=== PATIENT | male | born 1965 | race African-American/Black ===

== ENCOUNTER 2019-06-05 14:54 | Inpatient (IN) | payer OTHER ==
[2019-06-05 17:38] VITALS: BMI 22.8
--- NOTE | 2019-06-05 19:02 | HP ---
CIWA Score Nausea/Vomitin-No Nausea/No Vomiting Muscle Tremors: 1-None Visible, but [place] Anxiety: 4-Mod. Anxious/Guarded Agitation: 4-Moderately Restless Paroxysmal Sweats: No Perspiration Orientation: 0-Oriented Tacttile Disturbances: 2-Mild Itch/Numbness/Burn Auditory Disturbances: 0-None Visual Disturbances: 1-Very Mild Sensitivity Headache: 4-Moderately Severe CIWA-Ar Total Score: 16 - Admission Criteria OASAS Guidelines: Admission for Medically Managed Detox: Requires at least one of the followin. CIWA greater than 12 2. Seizures within the past 24 hours 3. Delirium tremens within the past 24 hours 4. Hallucinations within the past 24 hours 5. Acute intervention needed for co occurring medical disorder 6. Acute intervention needed for co occurring psychiatric disorder 7. Severe withdrawal that cannot be handled at a lower level of care (continued vomiting, continued diarrhea, abnormal vital signs) requiring intravenous medication and/or fluids 8. Admission [facility] Allergies/Adverse Reactions: Allergies Allergy/AdvReac Type Severity Reaction Status Date / Time rice Allergy Mild Verified 06/05/19 17:28 Milk Containing Products Allergy Unknown Verified 01/19/16 19:07 No Known Drug Allergies Allergy Unknown Verified 01/19/16 19:07 pasta Allergy Mild Uncoded 06/05/19 17:28 soda Allergy Mild Uncoded 06/05/19 17:28 RED MEAT Allergy Unknown Uncoded 01/19/16 19:07 History of Present Illness: pt here requesting detox from etoh use , reports relapse after 3 years , he went to a democrat and started drinking , current daily use 1 gallon /day , starts drinking in the mornings , reports tremors , chills/sweating , + blackouts , denies seizures , latest use today , current VANCE 0.080 , first age of use 11 , heavily since 2006 . Reports loss of job due to etoh use . tobacco : 1 ppd x 1 month , prior smoking cessation x 3 years . PMHX : DM 2 dx 2008 , PSHX : denies PSych : denies Meds : see list SHx : lives alone , unemployed . Exam Limitations: Clinical Condition - Ebola screening Have you traveled outside of the country in the last 21 days: No Have you had contact with anyone from an Ebola affected area: No - Review of Systems Constitutional: Loss of Appetite EENT: reports: Other (glasses) Respiratory: reports: No Symptoms reported Cardiac: reports: Chest Tightness (states went to [facility] yesterday for chest pain , per pt cleared , denies current symptoms , d/c this morning .) GI: reports: Diarrhea, Poor Appetite : reports: No Symptoms Reported Musculoskeletal: reports: No Symptoms Reported Integumentary: reports: No Symptoms Reported Neuro: reports: See HPI, Headache, Numbness, Paresthesia, Tremors Endocrine: reports: See HPI Psychiatric: reports: Orientated x3, Agitated, Anxious Patient History - Patient Medical History Hx Asthma: No Hx Chronic Obstructive Pulmonary Disease (COPD): No Hx Cardiac Disorders: No Hx Hypertension: No Hx Seizures: No Hx Diabetes: Yes (DIET CONTROLLED) Hx Gastrointestinal Disorders: No Hx Genitourinary Disorders: No Hx Sexually Transmitted Disorders: No Hx Renal Disease (ESRD): No Hx Human Immunodeficiency Virus (HIV): No Hx Hepatitis C: No Hx Depression: No Hx Suicide Attempt: No Hx Schizophrenia: No - Patient Surgical History Past Surgical History: No Hx Neurologic Surgery: No Hx Cataract Extraction: No Hx Cardiac Surgery: No Hx Lung Surgery: No Hx Breast Surgery: No Hx Breast Biopsy: No Hx Abdominal Surgery: No Hx Appendectomy: No Hx Cholecystectomy: No Hx Genitourinary Surgery: No Hx Section: No Hx Orthopedic Surgery: No - PPD History Date: 01/21/16 - Smoking Cessation Smoking history: Current every day smoker Have you smoked in the past 12 months: Yes Aproximately how many cigarettes per day: 20 Hx Chewing Tobacco Use: No Initiated information on smoking cessation: No - Substances abused Alcohol Substance route: Oral Frequency: Daily Amount used: 1 gal vodka Age of first use: 11 Date of last use: 06/05/19 Family Disease History - Family Disease History Family Disease History: Diabetes: Grandparent (ETOH DEPENDENT AND ), Father (d.), Mother (d.), CA: Father, Mother, Other: Grandparent, Father, Mother, Brother (2 brothers , A & W ), Sister (2 sisters , A & W ), Son (4 sons, A & W ) , Daughter (7 daughters , A & W ) Other Family History: 30 grand-children Admission Physical Exam S - Vital Signs Vital Signs: Vital Signs - 24 hr 08/27/19 17:32 Temperature 97.4 F L Pulse Rate 89 Respiratory 18 Rate Blood Pressure 125/72 - Physical General Appearance: Yes: Disheveled, Moderate Distress, Alcohol on Breath, Irritable, Anxious HEENTM: Yes: Hearing grossly Normal, Normocephalic, Normal Voice Respiratory: Yes: Lungs Clear, Normal Breath Sounds, No Respiratory Distress, No Accessory Muscle Use Neck: Yes: No masses,lesions,Nodules, Trachea in good position Cardiology: Yes: Regular Rhythm, Regular Rate, S1, S2, Tachycardia Abdominal: Yes: Non Tender, Soft Back: Yes: Normal Inspection Musculoskeletal: Yes: full range of Motion, Gait Steady Extremities: Yes: Normal Range of Motion, Non-Tender Neurological: Yes: Fully Oriented, Alert, Motor Strength 5/5 Integumentary: Yes: Warm - Diagnostic (1) Alcohol dependence with uncomplicated withdrawal Current Visit: Yes Status: Acute Breathalyzer - Breathalyzer Breathalyzer: 0.080 Urine Drug Screen - Test Device Lot number: [id number] Expiration date: 03/09/21 - Control Is test valid?: Yes - Results Drug screen NEGATIVE: Yes Inpatient Rehab Admission - Rehab Decision to Admit Inpatient rehab admission?: No
[2019-06-05] MEDS ORDERED: ACETAMINOPHEN 325 MG TABLET (FP) PO PRN ×2 (19:16)
[2019-06-05] MEDS ORDERED: IBUPROFEN 400 MG TABLET (FP) PO PRN (19:16)
[2019-06-05] MEDS ORDERED: MAG HYDROX/AL HYDROX/SIMETH 30 ML UNIT-DOSE CUP PO PRN (19:16)
[2019-06-05] MEDS ORDERED: MENTHOL/PHENOL 1 EACH UD MM PRN (19:16)
[2019-06-05] MEDS ORDERED: hydrOXYzine PAMOATE 25 MG CAPSULE (FP) PO PRN (19:16)
[2019-06-05] MEDS ORDERED: MAGNESIUM HYDROX 2400MG/30ML ORAL SUSPENSION 30 ML CUP PO PRN (19:16)
[2019-06-05] MEDS ORDERED: MAGNESIUM CITRATE 300 ML BOTTLE PO PRN (19:16)
[2019-06-05] MEDS ORDERED: BISMUTH SUBSALICYLATE 524 MG/30 ML UD PO PRN (19:16)
[2019-06-05] MEDS ORDERED: NICOTINE POLACRILEX 2 MG GUM BUC PRN (19:16)
[2019-06-05] MEDS ORDERED: chlordiazePOXIDE HCL 25 MG CAPSULE PO ONE (19:18)
[2019-06-05] MEDS ORDERED: chlordiazePOXIDE HCL 25 MG CAPSULE PO PRN (19:18)
[2019-06-05] MEDS: chlordiazePOXIDE HCL 25 MG CAPSULE PO SCH (22:47)
[2019-06-05] MEDS: METHOCARBAMOL 500 MG TABLET PO PRN (22:49)
[2019-06-05] MEDS: THIAMINE HCL 100 MG TABLET (FP) PO SCH (22:49)
[2019-06-05] MEDS: MELATONIN 5 MG TABLETS PO PRN (22:49)
[2019-06-05] MEDS ORDERED: QUEtiapine FUMARATE 25 MG TABLET (FP) PO ONE (23:00)
[2019-06-06] MEDS: chlordiazePOXIDE HCL 25 MG CAPSULE PO SCH ×4 (06:00→22:06)
[2019-06-06 10:13] LABS: HEMATOCRIT 38.6 % (35.4-49); HEMOGLOBIN 12.6 GM/dL (11.7-16.9); MCH 30.4 pg (25.7-33.7); MCHC 32.5 g/dl (32.0-35.9); MEAN CELL VOLUME 93.4 fl (80-96); MEAN PLT VOLUME 8.4 fl (7.5-11.1); PLATELET COUNT 182 K/MM3 (134-434); RBC 4.13 M/mm3 (4.00-5.60); RDW 18.3 % (11.9-15.9)
[2019-06-06 10:24] LABS: BILIRUBIN,TOTAL 0.4 mg/dL (0.2-1); CALCIUM 8.5 mg/dL (8.5-10.1); CREATININE 0.8 mg/dL (0.55-1.3); POTASSIUM 4.2 mmol/L (3.5-5.1)
[2019-06-06] MEDS: PRENATAL VITAMINS W/ FOLIC ACID TABLET (FP) PO SCH (10:40)
[2019-06-06] MEDS: METHOCARBAMOL 500 MG TABLET PO PRN ×2 (10:42→22:09)
--- NOTE | 2019-06-06 12:13 | CONSULT ---
[facility] Psychiatric Consult - Data Date of interview: 06/06/19 Admission source: [facility] Identifying data: Readmission to [facility] for this 53 y/o AA male self- referred for detoxification (alcohol). Examined at [address] [place] [address]. Patient is , a father of eleven, domiciled, and currently employed as a management trainee program stores. Substance Abuse History: Discussed in this session. Mr Cardoso confirms an extensive history of alcohol abuse. Details in current [facility] report as follows : Smoking history: Current every day smoker. Have you smoked in the past 12 months: Yes. Aproximately how many cigarettes per day: 20. Hx Chewing Tobacco Use: No. Initiated information on smoking cessation: No. - Substances abused. Alcohol. Substance route: Oral. Frequency: Daily. Amount used: 1 gal vodka. Age of first use: 11. Date of last use: 06/05/19 Medical History: Remarkable for diabetes mellitus. Psychiatric History: Patient denies history of psychiatric hospitalizations, OPD care or suicide attempts. Physical/Sexual Abuse/Trauma History: No history. Additional Comment: Drug screen is negative. Mental Status Exam - Mental Status Exam Alert and Oriented to: Time, Place, Person Cognitive Function: Good Patient Appearance: Well Groomed Mood: Nervous, Withdrawn, Anxious Affect: Appropriate, Mood Congruent Patient Behavior: Fatigued, Appropriate, Cooperative Speech Pattern: Clear Voice Loudness: Normal Thought Process: Intact, Goal Oriented Thought Disorder: Not Present Hallucinations: Denies Suicidal Ideation: Denies Homicidal Ideation: Denies Insight/Judgement: Poor Sleep: Well Appetite: Good Muscle strength/Tone: Normal Gait/Station: Normal Psychiatric Findings - Problem List ([place] 1, 2,3) (1) Alcohol dependence with uncomplicated withdrawal Current Visit: Yes Status: Acute - Initial Treatment Plan Initial Treatment Plan: Psychoeducation. Sleep hygiene. Detoxification. AA meetings. Support. Observation.
--- NOTE | 2019-06-06 14:51 | PN ---
[facility] CIWA - CIWA Score Nausea/Vomitin-Mild Nausea/No Vomiting Muscle Tremors: 4-Moderate,w/Arms Extend Anxiety: 3 Agitation: 2 Paroxysmal Sweats: 2 Orientation: 0-Oriented Tacttile Disturbances: 0-None Auditory Disturbances: 0-None Visual Disturbances: 0-None Headache: 1-Very Mild CIWA-Ar Total Score: 13 S Progress Note (SOAP) Subjective: 53 years old male first admission since 2015 was admitted on 06/05/19 for alcohol withdrawal sx management doing well with libirum detox regimen limited food toleration glucerna supplement as diabetes treated with high protein high calories diet with no concentrated sugar dietary referral Objective: 06/06/19 14:57 Vital Signs Temperature 98.4 F 06/06/19 09:22 Pulse Rate 86 06/06/19 13:17 Respiratory Rate 18 06/06/19 13:17 Blood Pressure 113/77 06/06/19 13:17 O2 Sat by Pulse Oximetry (%) Laboratory Last Values WBC 6.0 K/mm3 (4.0-10.0) 06/06/19 07:00 RBC 4.13 M/mm3 (4.00-5.60) 06/06/19 07:00 Hgb 12.6 GM/dL (11.7-16.9) 06/06/19 07:00 Hct 38.6 % (35.4-49) 06/06/19 07:00 MCV 93.4 fl (80-96) 06/06/19 07:00 MCH 30.4 pg (25.7-33.7) 06/06/19 07:00 MCHC 32.5 g/dl (32.0-35.9) 06/06/19 07:00 RDW 18.3 % (11.9-15.9) H 06/06/19 07:00 Plt Count 182 K/MM3 (134-434) 06/06/19 07:00 MPV 8.4 fl (7.5-11.1) 06/06/19 07:00 Sodium 142 mmol/L (136-145) 06/06/19 07:00 Potassium 4.2 mmol/L (3.5-5.1) 06/06/19 07:00 Chloride 108 mmol/L (98-107) H 06/06/19 07:00 Carbon Dioxide 28 mmol/L (21-32) 06/06/19 07:00 Anion Gap 6 MMOL/L (8-16) L 06/06/19 07:00 BUN 16.0 mg/dL (7-18) 06/06/19 07:00 Creatinine 0.8 mg/dL (0.55-1.3) 06/06/19 07:00 Est GFR (CKD-EPI)AfAm 116.56 06/06/19 07:00 Est GFR (CKD-EPI)NonAf 100.57 06/06/19 07:00 POC Glucometer 117 UNITS (80-120) 06/06/19 06:04 Random Glucose 104 mg/dL (74-106) 06/06/19 07:00 Calcium 8.5 mg/dL (8.5-10.1) 06/06/19 07:00 Total Bilirubin 0.4 mg/dL (0.2-1) 06/06/19 07:00 AST 30 U/L (15-37) 06/06/19 07:00 ALT 28 U/L (13-61) 06/06/19 07:00 Alkaline Phosphatase 65 U/L (45-117) 06/06/19 07:00 Total Protein 6.0 g/dl (6.4-8.2) L 06/06/19 07:00 Albumin 3.0 g/dl (3.4-5.0) L 06/06/19 07:00 RPR Titer Nonreactive (NONREACTIVE) 06/06/19 07:00 lab noted Assessment: 06/06/19 14:57 alcohol withdrawal sx patient is alert oriented x 3 but continue tremor chill and sweating Plan: continue librium detox regimen
[2019-06-06] MEDS: THIAMINE HCL 100 MG TABLET (FP) PO SCH (22:07)
[2019-06-06] MEDS: MELATONIN 5 MG TABLETS PO PRN (23:17)
[2019-06-07] MEDS: chlordiazePOXIDE HCL 25 MG CAPSULE PO SCH ×4 (05:47→22:28)
--- NOTE | 2019-06-07 10:10 | PN ---
[facility] CIWA - CIWA Score Nausea/Vomitin-No Nausea/No Vomiting Muscle Tremors: 2 Anxiety: 3 Agitation: 1-Slight > Activity Paroxysmal Sweats: 2 Orientation: 0-Oriented Tacttile Disturbances: 0-None Auditory Disturbances: 0-None Visual Disturbances: 0-None Headache: 1-Very Mild CIWA-Ar Total Score: 9 S Progress Note (SOAP) Subjective: doing well with libirum detox regimen irritable chill and sweat limited conversation with staff, avoid aftercare at [facility] seen by psychiatrist no biomedical intervention Objective: 06/07/19 10:09 Vital Signs Temperature 96.1 F L 06/07/19 09:14 Pulse Rate 68 06/07/19 09:14 Respiratory Rate 18 06/07/19 09:14 Blood Pressure 92/58 L 06/07/19 09:14 O2 Sat by Pulse Oximetry (%) Laboratory Last Values WBC 6.0 K/mm3 (4.0-10.0) 06/06/19 07:00 RBC 4.13 M/mm3 (4.00-5.60) 06/06/19 07:00 Hgb 12.6 GM/dL (11.7-16.9) 06/06/19 07:00 Hct 38.6 % (35.4-49) 06/06/19 07:00 MCV 93.4 fl (80-96) 06/06/19 07:00 MCH 30.4 pg (25.7-33.7) 06/06/19 07:00 MCHC 32.5 g/dl (32.0-35.9) 06/06/19 07:00 RDW 18.3 % (11.9-15.9) H 06/06/19 07:00 Plt Count 182 K/MM3 (134-434) 06/06/19 07:00 MPV 8.4 fl (7.5-11.1) 06/06/19 07:00 Sodium 142 mmol/L (136-145) 06/06/19 07:00 Potassium 4.2 mmol/L (3.5-5.1) 06/06/19 07:00 Chloride 108 mmol/L (98-107) H 06/06/19 07:00 Carbon Dioxide 28 mmol/L (21-32) 06/06/19 07:00 Anion Gap 6 MMOL/L (8-16) L 06/06/19 07:00 BUN 16.0 mg/dL (7-18) 06/06/19 07:00 Creatinine 0.8 mg/dL (0.55-1.3) 06/06/19 07:00 Est GFR (CKD-EPI)AfAm 116.56 06/06/19 07:00 Est GFR (CKD-EPI)NonAf 100.57 06/06/19 07:00 POC Glucometer 117 UNITS (80-120) 06/06/19 06:04 Random Glucose 104 mg/dL (74-106) 06/06/19 07:00 Calcium 8.5 mg/dL (8.5-10.1) 06/06/19 07:00 Total Bilirubin 0.4 mg/dL (0.2-1) 06/06/19 07:00 AST 30 U/L (15-37) 06/06/19 07:00 ALT 28 U/L (13-61) 06/06/19 07:00 Alkaline Phosphatase 65 U/L (45-117) 06/06/19 07:00 Total Protein 6.0 g/dl (6.4-8.2) L 06/06/19 07:00 Albumin 3.0 g/dl (3.4-5.0) L 06/06/19 07:00 RPR Titer Nonreactive (NONREACTIVE) 06/06/19 07:00 lab noted Assessment: 06/07/19 10:09 alcohol withdrawal sx alert oriented x 3 speech clearly but loud and irritable augmentative emotional support and assurance given Plan: continue libirum detox regimen
[2019-06-07] MEDS: PRENATAL VITAMINS W/ FOLIC ACID TABLET (FP) PO SCH (10:50)
[2019-06-07] MEDS: THIAMINE HCL 100 MG TABLET (FP) PO SCH (22:25)
[2019-06-07] MEDS: MELATONIN 5 MG TABLETS PO PRN (22:26)
[2019-06-07] MEDS: METHOCARBAMOL 500 MG TABLET PO PRN (22:26)
[2019-06-08] MEDS ORDERED: chlordiazePOXIDE HCL 10 MG CAPSULE PO PRN
[2019-06-08] MEDS: chlordiazePOXIDE HCL 10 MG CAPSULE PO SCH ×4 (06:54→22:30)
[2019-06-08] MEDS: PRENATAL VITAMINS W/ FOLIC ACID TABLET (FP) PO SCH (11:28)
--- NOTE | 2019-06-08 14:07 | PN ---
S CIWA - CIWA Score Nausea/Vomitin-No Nausea/No Vomiting Muscle Tremors: 1-None Visible, but [place] Anxiety: 2 Agitation: 2 Paroxysmal Sweats: No Perspiration Orientation: 0-Oriented Tacttile Disturbances: 1-Very Mild Itch/Numbness Auditory Disturbances: 0-None Visual Disturbances: 0-None Headache: 2-Mild CIWA-Ar Total Score: 8 BHS Progress Note (SOAP) Subjective: alert,irritable,anxious,interrupted sleep,poor appetite Objective: 06/08/19 14:06 Vital Signs Temperature 96.7 F L 06/08/19 13:59 Pulse Rate 79 06/08/19 13:59 Respiratory Rate 18 06/08/19 13:59 Blood Pressure 115/80 06/08/19 13:59 O2 Sat by Pulse Oximetry (%) Assessment: 06/08/19 14:06 withdrawal symptom Plan: continue detox librium regimen
[2019-06-08] MEDS: METHOCARBAMOL 500 MG TABLET PO PRN (22:27)
[2019-06-08] MEDS: MELATONIN 5 MG TABLETS PO PRN (22:27)
[2019-06-08] MEDS: THIAMINE HCL 100 MG TABLET (FP) PO SCH (22:27)
[2019-06-09] MEDS ORDERED: chlordiazePOXIDE HCL 10 MG CAPSULE PO SCH (05:00)
[2019-06-09] MEDS: PRENATAL VITAMINS W/ FOLIC ACID TABLET (FP) PO SCH (10:14)
--- NOTE | 2019-06-09 15:50 | PN ---
S CIWA - CIWA Score Nausea/Vomitin-No Nausea/No Vomiting Muscle Tremors: 2 Anxiety: 4-Mod. Anxious/Guarded Agitation: 2 Paroxysmal Sweats: 1-Minimal [place] Moist Orientation: 0-Oriented Tacttile Disturbances: 0-None Auditory Disturbances: 0-None Visual Disturbances: 0-None Headache: 0-None Present CIWA-Ar Total Score: 9 BHS Progress Note (SOAP) Subjective: Pt is a 53 y/o male with here for alcohol detox alcohol. Pt c/ of chills, anxiety and slight tremors. OOb, ambulating and socializing with peers in dayroom at breakfast period. Pt reports to this commercial underwriter that he has not been taking the librium because it makes his eyes swell. He indicated he forgot to mention that on admission but has mentioned for few days on the unit and has not been taking the librium. Verifiable on DEC. Pt admitted on 06/05/19 and scheduled to complete detox tomorrow. Objective: Alert o x 3 OOB ambulating with steady gait. No acute distress 06/09/19 15:54 Vital Signs - 24 hr 06/08/19 06/08/19 06/09/19 17:52 21:36 00:30 Temperature 97.6 F 97.2 F L Pulse Rate 70 74 Respiratory 18 18 16 Rate Blood Pressure 112/72 140/85 06/09/19 06/09/19 06/09/19 03:30 06:10 06:30 Temperature 97.3 F L Pulse Rate 66 Respiratory 18 18 18 Rate Blood Pressure 107/66 06/09/19 06/09/19 09:15 13:13 Temperature 97.0 F L 97.0 F L Pulse Rate 77 71 Respiratory 18 18 Rate Blood Pressure 107/72 133/90 Laboratory Tests 06/06/19 06/06/19 06/06/19 06:04 07:00 07:00 WBC 6.0 RBC 4.13 Hgb 12.6 Hct 38.6 MCV 93.4 MCH 30.4 MCHC 32.5 RDW 18.3 H Plt Count 182 MPV 8.4 Sodium 142 Potassium 4.2 Chloride 108 H Carbon Dioxide 28 Anion Gap 6 L BUN 16.0 Creatinine 0.8 Est GFR (CKD-EPI)AfAm 116.56 Est GFR (CKD-EPI)NonAf 100.57 POC Glucometer 117 Random Glucose 104 Calcium 8.5 Total Bilirubin 0.4 AST 30 ALT 28 Alkaline Phosphatase 65 Total Protein 6.0 L Albumin 3.0 L RPR Titer 06/06/19 07:00 WBC RBC Hgb Hct MCV MCH MCHC RDW Plt Count MPV Sodium Potassium Chloride Carbon Dioxide Anion Gap BUN Creatinine Est GFR (CKD-EPI)AfAm Est GFR (CKD-EPI)NonAf POC Glucometer Random Glucose Calcium Total Bilirubin AST ALT Alkaline Phosphatase Total Protein Albumin RPR Titer Nonreactive 06/09/19 16:00 Assessment: 06/09/19 15:54 nad Plan: Will d/c last dose of librium taper D/w pt may have vistaril prn for anxiety. increase po fluids. Pt is scheduled to discharge tomorrow.
[2019-06-09] MEDS: THIAMINE HCL 100 MG TABLET (FP) PO SCH (22:04)
[2019-06-09] MEDS: MELATONIN 5 MG TABLETS PO PRN (22:05)
[2019-06-10] MEDS ORDERED: chlordiazePOXIDE HCL 10 MG CAPSULE PO ONE (05:00)
[2019-06-10 06:30] VITALS: BP 100/58; PULSE 59; TEMP 97
--- NOTE | 2019-06-10 09:29 | DS ---
[facility] Detox Discharge Summary Admission Date: 06/05/19 Discharge Date: 06/10/19 - History Present History: Alcohol Dependence Additional Comments: 53 years old male first patient [facility], [place], operated by [facility] admission since 2015 was admitted on 06/05/19 for acute alcohol withdrawal sx management doing well with librium detox regimen no complication through out the detox stay seen by psychiatrist no medical intervention needed court date 06/12/19 alcohol rehab will be arranged Pertinent Past History: diabetes II nicotine dependent random glucose normal bgm normal - Physical Exam Results Vital Signs: Vital Signs Temperature 97 F L 06/10/19 06:30 Pulse Rate 59 L 06/10/19 06:30 Respiratory Rate 18 06/10/19 06:30 Blood Pressure 100/58 L 06/10/19 06:30 O2 Sat by Pulse Oximetry (%) Pertinent Admission Physical Exam Findings: alcohol withdrawal sx Vital Signs Temperature 97 F L 06/10/19 06:30 Pulse Rate 59 L 06/10/19 06:30 Respiratory Rate 18 06/10/19 06:30 Blood Pressure 100/58 L 06/10/19 06:30 O2 Sat by Pulse Oximetry (%) Laboratory Last Values WBC 6.0 K/mm3 (4.0-10.0) 06/06/19 07:00 RBC 4.13 M/mm3 (4.00-5.60) 06/06/19 07:00 Hgb 12.6 GM/dL (11.7-16.9) 06/06/19 07:00 Hct 38.6 % (35.4-49) 06/06/19 07:00 MCV 93.4 fl (80-96) 06/06/19 07:00 MCH 30.4 pg (25.7-33.7) 06/06/19 07:00 MCHC 32.5 g/dl (32.0-35.9) 06/06/19 07:00 RDW 18.3 % (11.9-15.9) H 06/06/19 07:00 Plt Count 182 K/MM3 (134-434) 06/06/19 07:00 MPV 8.4 fl (7.5-11.1) 06/06/19 07:00 Sodium 142 mmol/L (136-145) 06/06/19 07:00 Potassium 4.2 mmol/L (3.5-5.1) 06/06/19 07:00 Chloride 108 mmol/L (98-107) H 06/06/19 07:00 Carbon Dioxide 28 mmol/L (21-32) 06/06/19 07:00 Anion Gap 6 MMOL/L (8-16) L 06/06/19 07:00 BUN 16.0 mg/dL (7-18) 06/06/19 07:00 Creatinine 0.8 mg/dL (0.55-1.3) 06/06/19 07:00 Est GFR (CKD-EPI)AfAm 116.56 06/06/19 07:00 Est GFR (CKD-EPI)NonAf 100.57 06/06/19 07:00 POC Glucometer 117 UNITS (80-120) 06/06/19 06:04 Random Glucose 104 mg/dL (74-106) 06/06/19 07:00 Calcium 8.5 mg/dL (8.5-10.1) 06/06/19 07:00 Total Bilirubin 0.4 mg/dL (0.2-1) 06/06/19 07:00 AST 30 U/L (15-37) 06/06/19 07:00 ALT 28 U/L (13-61) 06/06/19 07:00 Alkaline Phosphatase 65 U/L (45-117) 06/06/19 07:00 Total Protein 6.0 g/dl (6.4-8.2) L 06/06/19 07:00 Albumin 3.0 g/dl (3.4-5.0) L 06/06/19 07:00 RPR Titer Nonreactive (NONREACTIVE) 06/06/19 07:00 lab noted alert oriented x 3 ambulating steady gait speech clearly cardiac S1S2 regular rate and rhythm pulmonary: clear lung bilaterally on auscultation abdomen: soft no rebound tenderness skin warm and dry denies pain denies dizziness - Treatment Hospital Course: Detox Protocol Followed, Detoxed Safely, Responded well, Discharged Condition Good, Rehab Referral Accepted Patient has Accepted a Rehab Referral to: community support approach - Medication Discharge Medications: Ambulatory Orders NK [No Known Home Medication] 01/19/16 - Diagnosis (1) DM Diabetes mellitus type 2 Current Visit: Yes Status: Chronic (2) Cigarette nicotine dependence Current Visit: Yes Status: Acute Qualifiers: Substance use status: in withdrawal Qualified Code(s): F17.213 - Nicotine dependence, cigarettes, with withdrawal (3) Alcohol dependence with uncomplicated withdrawal Current Visit: Yes Status: Acute - AMA Did Patient Leave Against Medical Advice: No
== END 2019-06-10 09:49 | disposition home or self-care (01) | DRG 775 ==
LOC: YASAS 14:54 → Y6N 19:25 → Y3N 20:17
PROVIDERS: ADMIT Surgery; ATTEND Surgery
PROC: HZ2ZZZZ Detoxification Services for Substance Abuse Treatment (ICD-10-PCS; principal; 2019-06-05)
DX: F10.230 Alcohol dependence with withdrawal, uncomplicated (principal); F17.213 Nicotine dependence, cigarettes, with withdrawal; E11.9 Type 2 diabetes mellitus without complications
CPT/HCPCS: 36415; 80053; 82962; 85027; 86593

== ENCOUNTER 2019-09-03 10:39 | Inpatient (IN) | payer OTHER ==
[2019-09-03 11:50] VITALS: BMI 24.2
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
[2019-09-03] MEDS ORDERED: MAG HYDROX/AL HYDROX/SIMETH 30 ML UNIT-DOSE CUP PO PRN (13:01)
[2019-09-03] MEDS ORDERED: MAGNESIUM CITRATE 300 ML BOTTLE PO PRN (13:01)
[2019-09-03] MEDS ORDERED: MENTHOL/PHENOL 1 EACH UD MM PRN (13:01)
[2019-09-03] MEDS ORDERED: MAGNESIUM HYDROX 2400MG/30ML ORAL SUSPENSION 30 ML CUP PO PRN (13:01)
[2019-09-03] MEDS ORDERED: BISMUTH SUBSALICYLATE 524 MG/30 ML UD PO PRN (13:01)
[2019-09-03] MEDS ORDERED: ACETAMINOPHEN 325 MG TABLET (FP) PO PRN (13:01)
[2019-09-03] MEDS ORDERED: LORazepam 1 MG TABLET PO PRN (13:01)
[2019-09-03] MEDS: METHOCARBAMOL 500 MG TABLET PO PRN ×2 (15:17→22:20)
[2019-09-03] MEDS: IBUPROFEN 400 MG TABLET (FP) PO PRN (18:26)
[2019-09-03] MEDS: LORazepam 2 MG TABLET PO SCH ×2 (18:26→22:20)
[2019-09-03 18:54] LABS: ALBUMIN 3.3 g/dl (3.4-5.0); BILIRUBIN,TOTAL 0.7 mg/dL (0.2-1); CALCIUM 8.5 mg/dL (8.5-10.1); CREATININE 0.8 mg/dL (0.55-1.3); POTASSIUM 4.2 mmol/L (3.5-5.1); TOT PROT 6.4 g/dl (6.4-8.2)
[2019-09-03 18:55] LABS: HEMATOCRIT 37.2 % (35.4-49); HEMOGLOBIN 12.2 GM/dL (11.7-16.9); MCH 29.9 pg (25.7-33.7); MCHC 32.8 g/dl (32.0-35.9); MEAN CELL VOLUME 91.1 fl (80-96); MEAN PLT VOLUME 8.6 fl (7.5-11.1); PLATELET COUNT 204 K/MM3 (134-434); RBC 4.08 M/mm3 (4.00-5.60); RDW 14.1 % (11.9-15.9); WHITE BLOOD COUNT 5.5 K/mm3 (4.0-10.0)
[2019-09-03] MEDS: hydrOXYzine PAMOATE 25 MG CAPSULE (FP) PO PRN (22:20)
[2019-09-03] MEDS: THIAMINE HCL 100 MG TABLET (FP) PO SCH (22:21)
[2019-09-04] MEDS: LORazepam 2 MG TABLET PO SCH ×5 (08:22→23:16)
[2019-09-04] MEDS: PRENATAL VITAMINS W/ FOLIC ACID TABLET (FP) PO SCH (09:41)
[2019-09-04] MEDS: METHOCARBAMOL 500 MG TABLET PO PRN ×2 (09:41→17:17)
[2019-09-04] MEDS: NICOTINE 14 MG/24 HOURS TOPICAL PATCH TD SCH (09:45)
--- NOTE | 2019-09-04 10:42 | PN ---
S CIWA - CIWA Score Nausea/Vomitin-Mild Nausea/No Vomiting Muscle Tremors: 4-Moderate,w/Arms Extend Anxiety: 3 Agitation: 2 Paroxysmal Sweats: 2 Orientation: 0-Oriented Tacttile Disturbances: 1-Very Mild Itch/Numbness Auditory Disturbances: 0-None Visual Disturbances: 0-None Headache: 0-None Present CIWA-Ar Total Score: 13 BHS Progress Note (SOAP) Subjective: 54 years old male admitted on 09/03/19 for alcohol withdrawal sx management treated with ativan detox regimen sitting on the edge of the bed eating breakfast no trouble chewing no trouble swallowing tolerate food and fluid well Objective: 09/04/19 10:39 Vital Signs Temperature 97 F L 09/04/19 09:24 Pulse Rate 84 09/04/19 09:24 Respiratory Rate 18 09/04/19 09:24 Blood Pressure 138/90 09/04/19 09:24 O2 Sat by Pulse Oximetry (%) Laboratory Last Values WBC 5.5 K/mm3 (4.0-10.0) 09/03/19 14:00 RBC 4.08 M/mm3 (4.00-5.60) 09/03/19 14:00 Hgb 12.2 GM/dL (11.7-16.9) 09/03/19 14:00 Hct 37.2 % (35.4-49) 09/03/19 14:00 MCV 91.1 fl (80-96) 09/03/19 14:00 MCH 29.9 pg (25.7-33.7) 09/03/19 14:00 MCHC 32.8 g/dl (32.0-35.9) 09/03/19 14:00 RDW 14.1 % (11.9-15.9) D 09/03/19 14:00 Plt Count 204 K/MM3 (134-434) 09/03/19 14:00 MPV 8.6 fl (7.5-11.1) 09/03/19 14:00 Sodium 141 mmol/L (136-145) 09/03/19 14:00 Potassium 4.2 mmol/L (3.5-5.1) 09/03/19 14:00 Chloride 107 mmol/L (98-107) 09/03/19 14:00 Carbon Dioxide 29 mmol/L (21-32) 09/03/19 14:00 Anion Gap 5 MMOL/L (8-16) L 09/03/19 14:00 BUN 18.0 mg/dL (7-18) 09/03/19 14:00 Creatinine 0.8 mg/dL (0.55-1.3) 09/03/19 14:00 Est GFR (CKD-EPI)AfAm 115.74 09/03/19 14:00 Est GFR (CKD-EPI)NonAf 99.86 09/03/19 14:00 POC Glucometer 103 UNITS (80-120) 09/04/19 06:21 Random Glucose 146 mg/dL (74-106) H 09/03/19 14:00 Calcium 8.5 mg/dL (8.5-10.1) 09/03/19 14:00 Total Bilirubin 0.7 mg/dL (0.2-1) 09/03/19 14:00 AST 24 U/L (15-37) 09/03/19 14:00 ALT 23 U/L (13-61) 09/03/19 14:00 Alkaline Phosphatase 59 U/L (45-117) 09/03/19 14:00 Total Protein 6.4 g/dl (6.4-8.2) 09/03/19 14:00 Albumin 3.3 g/dl (3.4-5.0) L 09/03/19 14:00 RPR Titer Nonreactive (NONREACTIVE) 09/03/19 14:00 HIV 1&2 Antibody Screen Negative 09/03/19 14:40 HIV P24 Antigen Negative 09/03/19 14:40 lab noted long history of diabetes dietary control no medical treatment 09/04/19 10:39 09/04/19 10:41 Assessment: 09/04/19 10:41 alcohol withdrawal sx discuss alcohol related glucose elevation Plan: continue ativan detox regimen
[2019-09-04] MEDS: THIAMINE HCL 100 MG TABLET (FP) PO SCH (23:16)
[2019-09-05] MEDS: LORazepam 1 MG TABLET PO SCH ×4 (06:05→22:42)
[2019-09-05] MEDS: PRENATAL VITAMINS W/ FOLIC ACID TABLET (FP) PO SCH (10:29)
[2019-09-05] MEDS: NICOTINE 14 MG/24 HOURS TOPICAL PATCH TD SCH (10:30)
[2019-09-05] MEDS: METHOCARBAMOL 500 MG TABLET PO PRN ×2 (10:30→17:29)
--- NOTE | 2019-09-05 14:44 | PN ---
[facility] CIWA - CIWA Score Nausea/Vomitin-Mild Nausea/No Vomiting Muscle Tremors: 2 Anxiety: 2 Agitation: 2 Paroxysmal Sweats: 1-Minimal Palms Moist Orientation: 0-Oriented Tacttile Disturbances: 0-None Auditory Disturbances: 0-None Visual Disturbances: 0-None Headache: 0-None Present CIWA-Ar Total Score: 8 S Progress Note (SOAP) Subjective: 54 years old male admitted on 09/03/19 for alcohol withdrawal sx management treated with ativan detox regimen patient is alert ambulating on hallway social with peers in day room discuss aftercare with staff Objective: 09/05/19 14:43 Vital Signs Temperature 97.3 F L 09/05/19 14:42 Pulse Rate 94 H 09/05/19 14:42 Respiratory Rate 18 09/05/19 14:42 Blood Pressure 147/91 09/05/19 14:42 O2 Sat by Pulse Oximetry (%) Laboratory Last Values WBC 5.5 K/mm3 (4.0-10.0) 09/03/19 14:00 RBC 4.08 M/mm3 (4.00-5.60) 09/03/19 14:00 Hgb 12.2 GM/dL (11.7-16.9) 09/03/19 14:00 Hct 37.2 % (35.4-49) 09/03/19 14:00 MCV 91.1 fl (80-96) 09/03/19 14:00 MCH 29.9 pg (25.7-33.7) 09/03/19 14:00 MCHC 32.8 g/dl (32.0-35.9) 09/03/19 14:00 RDW 14.1 % (11.9-15.9) D 09/03/19 14:00 Plt Count 204 K/MM3 (134-434) 09/03/19 14:00 MPV 8.6 fl (7.5-11.1) 09/03/19 14:00 Sodium 141 mmol/L (136-145) 09/03/19 14:00 Potassium 4.2 mmol/L (3.5-5.1) 09/03/19 14:00 Chloride 107 mmol/L (98-107) 09/03/19 14:00 Carbon Dioxide 29 mmol/L (21-32) 09/03/19 14:00 Anion Gap 5 MMOL/L (8-16) L 09/03/19 14:00 BUN 18.0 mg/dL (7-18) 09/03/19 14:00 Creatinine 0.8 mg/dL (0.55-1.3) 09/03/19 14:00 Est GFR (CKD-EPI)AfAm 115.74 09/03/19 14:00 Est GFR (CKD-EPI)NonAf 99.86 09/03/19 14:00 POC Glucometer 113 UNITS (80-120) 09/05/19 06:26 Random Glucose 146 mg/dL (74-106) H 09/03/19 14:00 Calcium 8.5 mg/dL (8.5-10.1) 09/03/19 14:00 Total Bilirubin 0.7 mg/dL (0.2-1) 09/03/19 14:00 AST 24 U/L (15-37) 09/03/19 14:00 ALT 23 U/L (13-61) 09/03/19 14:00 Alkaline Phosphatase 59 U/L (45-117) 09/03/19 14:00 Total Protein 6.4 g/dl (6.4-8.2) 09/03/19 14:00 Albumin 3.3 g/dl (3.4-5.0) L 09/03/19 14:00 RPR Titer Nonreactive (NONREACTIVE) 09/03/19 14:00 HIV 1&2 Antibody Screen Negative 09/03/19 14:40 HIV P24 Antigen Negative 09/03/19 14:40 lab noted long history of diabetes 09/05/19 14:44 Assessment: 09/05/19 14:44 alcohol withdrawal sx Plan: continue ativan detox regimen
[2019-09-05] MEDS: THIAMINE HCL 100 MG TABLET (FP) PO SCH (22:42)
[2019-09-05] MEDS: IBUPROFEN 400 MG TABLET (FP) PO PRN (22:44)
[2019-09-05] MEDS: hydrOXYzine PAMOATE 25 MG CAPSULE (FP) PO PRN (22:44)
[2019-09-05] MEDS: MELATONIN 5 MG TABLETS PO PRN (22:44)
[2019-09-06] MEDS ORDERED: LORazepam 0.5 MG TABLET PO PRN
[2019-09-06] MEDS: LORazepam 0.5 MG TABLET PO SCH ×4 (05:58→22:17)
[2019-09-06] MEDS: METHOCARBAMOL 500 MG TABLET PO PRN ×3 (06:20→22:27)
[2019-09-06] MEDS: PRENATAL VITAMINS W/ FOLIC ACID TABLET (FP) PO SCH (10:35)
[2019-09-06] MEDS: NICOTINE 14 MG/24 HOURS TOPICAL PATCH TD SCH (10:36)
--- NOTE | 2019-09-06 11:36 | PN ---
S CIWA - CIWA Score Nausea/Vomitin-No Nausea/No Vomiting Muscle Tremors: 1-None Visible, but [place] Anxiety: 2 Agitation: 1-Slight > Activity Paroxysmal Sweats: No Perspiration Orientation: 0-Oriented Tacttile Disturbances: 0-None Auditory Disturbances: 0-None Visual Disturbances: 0-None Headache: 0-None Present CIWA-Ar Total Score: 4 BHS Progress Note (SOAP) Subjective: 54 years old male admitted on 09/03/19 for alcohol withdrawal sx management treated with ativan detox regimen report chronic joints pain and body aches encourage tylenal or motrin administration Objective: 09/06/19 11:37 Vital Signs Temperature 96.8 F L 09/06/19 09:17 Pulse Rate 68 09/06/19 09:17 Respiratory Rate 18 09/06/19 09:17 Blood Pressure 121/69 09/06/19 09:17 O2 Sat by Pulse Oximetry (%) Laboratory Last Values WBC 5.5 K/mm3 (4.0-10.0) 09/03/19 14:00 RBC 4.08 M/mm3 (4.00-5.60) 09/03/19 14:00 Hgb 12.2 GM/dL (11.7-16.9) 09/03/19 14:00 Hct 37.2 % (35.4-49) 09/03/19 14:00 MCV 91.1 fl (80-96) 09/03/19 14:00 MCH 29.9 pg (25.7-33.7) 09/03/19 14:00 MCHC 32.8 g/dl (32.0-35.9) 09/03/19 14:00 RDW 14.1 % (11.9-15.9) D 09/03/19 14:00 Plt Count 204 K/MM3 (134-434) 09/03/19 14:00 MPV 8.6 fl (7.5-11.1) 09/03/19 14:00 Sodium 141 mmol/L (136-145) 09/03/19 14:00 Potassium 4.2 mmol/L (3.5-5.1) 09/03/19 14:00 Chloride 107 mmol/L (98-107) 09/03/19 14:00 Carbon Dioxide 29 mmol/L (21-32) 09/03/19 14:00 Anion Gap 5 MMOL/L (8-16) L 09/03/19 14:00 BUN 18.0 mg/dL (7-18) 09/03/19 14:00 Creatinine 0.8 mg/dL (0.55-1.3) 09/03/19 14:00 Est GFR (CKD-EPI)AfAm 115.74 09/03/19 14:00 Est GFR (CKD-EPI)NonAf 99.86 09/03/19 14:00 POC Glucometer 128 UNITS (80-120) 09/06/19 06:11 Random Glucose 146 mg/dL (74-106) H 09/03/19 14:00 Calcium 8.5 mg/dL (8.5-10.1) 09/03/19 14:00 Total Bilirubin 0.7 mg/dL (0.2-1) 09/03/19 14:00 AST 24 U/L (15-37) 09/03/19 14:00 ALT 23 U/L (13-61) 09/03/19 14:00 Alkaline Phosphatase 59 U/L (45-117) 09/03/19 14:00 Total Protein 6.4 g/dl (6.4-8.2) 09/03/19 14:00 Albumin 3.3 g/dl (3.4-5.0) L 09/03/19 14:00 RPR Titer Nonreactive (NONREACTIVE) 09/03/19 14:00 HIV 1&2 Antibody Screen Negative 09/03/19 14:40 HIV P24 Antigen Negative 09/03/19 14:40 lab noted 09/06/19 11:38 patient reported that he is pre diabetic treated with dietary carbohydrate control bgm within acceptable range encourage the patient follow up with primary care provider for glucose tolerance testing Assessment: 09/06/19 11:40 alcohol withdrawal sx Plan: continue ativan detox regimen
[2019-09-06] MEDS: ACETAMINOPHEN 325 MG TABLET (FP) PO PRN ×2 (17:23→22:29)
[2019-09-06] MEDS: THIAMINE HCL 100 MG TABLET (FP) PO SCH (22:17)
[2019-09-06] MEDS: MELATONIN 5 MG TABLETS PO PRN (22:17)
[2019-09-07] MEDS ORDERED: LORazepam 0.5 MG TABLET PO ONE (05:00)
--- NOTE | 2019-09-07 08:42 | DS ---
[facility] Detox Discharge Summary Admission Date: 09/03/19 Discharge Date: 09/07/19 - History Present History: Alcohol Dependence, Cocaine Dependence - Physical Exam Results Vital Signs: Vital Signs Temperature 97.1 F L 09/07/19 06:12 Pulse Rate 67 09/07/19 06:12 Respiratory Rate 18 09/07/19 06:12 Blood Pressure 125/74 09/07/19 06:12 O2 Sat by Pulse Oximetry (%) - Treatment Hospital Course: Detox Protocol Followed, Detoxed Safely, Responded well, Discharged Condition Good - Medication Discharge Medications: Ambulatory Orders NK [No Known Home Medication] 01/19/16 - Diagnosis (1) Alcohol dependence with uncomplicated withdrawal Current Visit: Yes Status: Chronic (2) Cigarette nicotine dependence Current Visit: Yes Status: Chronic Qualifiers: Substance use status: in withdrawal Qualified Code(s): F17.213 - Nicotine dependence, cigarettes, with withdrawal (3) Cocaine dependence, uncomplicated Current Visit: Yes Status: Acute (4) DM Diabetes mellitus type 2 Current Visit: Yes Status: Chronic (5) Cannabis dependence Current Visit: Yes Status: Chronic - AMA Did Patient Leave Against Medical Advice: No
[2019-09-07 09:25] VITALS: BP 122/74; PULSE 89; TEMP 98
[2019-09-07] MEDS: PRENATAL VITAMINS W/ FOLIC ACID TABLET (FP) PO SCH (09:37)
[2019-09-07] MEDS: NICOTINE 14 MG/24 HOURS TOPICAL PATCH TD SCH (09:38)
== END 2019-09-07 10:00 | disposition home or self-care (01) | DRG 774 ==
LOC: YASAS 10:39 → Y3N 13:47
PROVIDERS: ADMIT Allergy & Immunology; ATTEND Allergy & Immunology
PROC: HZ2ZZZZ Detoxification Services for Substance Abuse Treatment (ICD-10-PCS; principal; 2019-09-03)
DX: F10.230 Alcohol dependence with withdrawal, uncomplicated (principal); F14.20 Cocaine dependence, uncomplicated; F12.20 Cannabis dependence, uncomplicated; F17.210 Nicotine dependence, cigarettes, uncomplicated; E11.9 Type 2 diabetes mellitus without complications; Z88.8 Allergy status to other drugs, medicaments and biological substances; Z91.018 Allergy to other foods; Z91.011 Allergy to milk products; Z59.0 Homelessness
CPT/HCPCS: 36415; 80053; 82962; 85027; 86593; 87389

== ENCOUNTER 2019-10-30 14:54 | Inpatient (IN) | payer OTHER ==
[2019-10-30 17:45] VITALS: BMI 25.9
--- NOTE | 2019-10-30 20:44 | HP ---
CIWA Score Nausea/Vomitin Muscle Tremors: 2 Anxiety: 3 Agitation: 2 Paroxysmal Sweats: 3 Orientation: 0-Oriented Tacttile Disturbances: 0-None Auditory Disturbances: 0-None Visual Disturbances: 0-None Headache: 2-Mild CIWA-Ar Total Score: 14 - Admission Criteria OASAS Guidelines: Admission for Medically Managed Detox: Requires at least one of the followin. CIWA greater than 12 2. Seizures within the past 24 hours 3. Delirium tremens within the past 24 hours 4. Hallucinations within the past 24 hours 5. Acute intervention needed for co occurring medical disorder 6. Acute intervention needed for co occurring psychiatric disorder 7. Severe withdrawal that cannot be handled at a lower level of care (continued vomiting, continued diarrhea, abnormal vital signs) requiring intravenous medication and/or fluids 8. Admitting History and Physical - Admission Chief Complaint: "I'm here for alcohol detox". History of Present Illness: A 54year old male with history of DM off medications since 2012, alcohol, and cocaine use disorder who presents here today for alcohol detox. Pt's last detox here was on 09/03/2019 to 09/07/2019 and states he relapsed 4days ago because he wanted to be "warm". Denies any psych history. Denies any depression or suicidal ideation at this time. History Source: Patient Limitations to Obtaining History: No Limitations - Past Medical History Endocrine: Yes: Other (DM) - Past Surgical History Past Surgical History: Yes: None - Smoking History Smoking history: Current every day smoker Have you smoked in the past 12 months: Yes Aproximately how many cigarettes per day: 20 - Alcohol/Substance Use Hx Alcohol Use: Yes (2 gallons of vodka daily) History of Substance Use: reports: Cocaine - Social History Usual Living Arrangement: Yes: Other (Lives with his son.) Do you think of yourself as: Straight/Heterosexual ADL: Independent Occupation: unemployed salesman History of Recent Travel: No Admission ROS [facility] Allergies/Adverse Reactions: Allergies Allergy/AdvReac Type Severity Reaction Status Date / Time rice Allergy Mild Verified 10/30/19 17:37 Sugars, Metabolically Active Allergy Mild Verified 10/30/19 17:37 chlordiazepoxide Allergy Unknown Swelling Verified 10/30/19 17:37 [From Librium] Milk Containing Products Allergy Unknown Verified 10/30/19 17:37 No Known Drug Allergies Allergy Unknown Verified 10/30/19 17:37 pasta Allergy Mild Uncoded 10/30/19 17:37 soda Allergy Mild Uncoded 10/30/19 17:37 RED MEAT Allergy Unknown Uncoded 10/30/19 17:37 Exam Limitations: No Limitations - Ebola screening Have you traveled outside of the country in the last 21 days: No (N) Have you had contact with anyone from an Ebola affected area: No Have you been sick,other than usual withdrawal symptoms: No Do you have a fever: No - Review of Systems Constitutional: Chills, Night Sweats EENT: reports: No Symptoms Reported Respiratory: reports: No Symptoms reported Cardiac: reports: No Symptoms Reported GI: reports: Nausea : reports: No Symptoms Reported Musculoskeletal: reports: No Symptoms Reported Integumentary: reports: Sweating Endocrine: reports: No Symptoms Reported Hematology: reports: No Symptoms Reported Psychiatric: reports: Mood/Affect Appropiate, Anxious Other Systems: Reviewed and Negative Patient History - Patient Medical History Hx Asthma: No Hx Chronic Obstructive Pulmonary Disease (COPD): No Hx Cardiac Disorders: No Hx Hypertension: No Hx Seizures: No Hx Diabetes: Yes (Pt states his PMD took him off meds since 2012) Hx Gastrointestinal Disorders: No Hx Genitourinary Disorders: No Hx Sexually Transmitted Disorders: No Hx Renal Disease (ESRD): No Hx Human Immunodeficiency Virus (HIV): No Hx Hepatitis C: No Hx Depression: No Hx Suicide Attempt: No Hx Schizophrenia: No - Patient Surgical History Past Surgical History: No Hx Neurologic Surgery: No Hx Cataract Extraction: No Hx Cardiac Surgery: No Hx Lung Surgery: No Hx Breast Surgery: No Hx Breast Biopsy: No Hx Abdominal Surgery: No Hx Appendectomy: No Hx Cholecystectomy: No Hx Genitourinary Surgery: No Hx Section: No Hx Orthopedic Surgery: No - PPD History Previous Implant?: Yes Documented Results: Negative w/proof Implanted On Prior R Admission?: Yes Date: 09/06/19 Results: 00 PPD to be Administered?: No - Smoking Cessation Smoking history: Current every day smoker Have you smoked in the past 12 months: Yes Aproximately how many cigarettes per day: 20 Hx Chewing Tobacco Use: No Initiated information on smoking cessation: Yes 'Breaking Loose' booklet given: 10/30/19 - Substance & Tx. History Hx Alcohol Use: Yes Hx Substance Use: Yes Substance Use Type: Alcohol, Cocaine Hx Substance Use Treatment: No - Substances abused Alcohol Substance route: Oral Frequency: Daily Amount used: liquor- 1 gallon Age of first use: 13 Date of last use: 10/30/19 Cocaine Substance route: Inhalation Frequency: Daily Amount used: 50 bags Age of first use: 17 Date of last use: 10/29/19 PCP Substance route: Smoking Frequency: Daily Amount used: 2 bags Age of first use: 13 Date of last use: 10/29/19 Admission Physical Exam [facility] - Vital Signs Vital Signs: Vital Signs - 24 hr 10/30/19 10/30/19 17:29 18:16 Temperature 97.2 F L 97.2 F L Pulse Rate 82 82 Respiratory 18 18 Rate Blood Pressure 157/88 157/88 - Physical General Appearance: Yes: No Apparent Distress, Tremorous, Irritable, Sweating, Anxious HEENTM: Yes: EOMI, Hearing grossly Normal, Normocephalic, Normal Voice, ANU Respiratory: Yes: Chest Non-Tender, Lungs Clear, Normal Breath Sounds, No Respiratory Distress Neck: Yes: No masses,lesions,Nodules, Trachea in good position Breast: Yes: Within Normal Limits Cardiology: Yes: Regular Rhythm, Regular Rate, S1, S2 Abdominal: Yes: Normal Bowel Sounds, Non Tender, Flat, Soft Genitourinary: Yes: Within Normal Limits Back: Yes: Normal Inspection Musculoskeletal: Yes: full range of Motion, Gait Steady Extremities: Yes: Normal Capillary Refill, Tremors Neurological: Yes: Alert, Motor Strength 5/5, Normal Mood/Affect, Normal Response Integumentary: Yes: Normal Color, Dry, Warm Lymphatic: Yes: Within Normal Limits - Diagnostic (1) Cocaine dependence, uncomplicated Current Visit: No Status: Acute (2) Alcohol dependence with uncomplicated withdrawal Current Visit: No Status: Chronic (3) Cigarette nicotine dependence Current Visit: No Status: Chronic Qualifiers: Substance use status: in withdrawal Qualified Code(s): F17.213 - Nicotine dependence, cigarettes, with withdrawal (4) DM Diabetes mellitus type 2 Current Visit: No Status: Chronic Cleared for Admission [facility] - Detox or Rehab [facility] Level of Care: Medically Managed Detox Regimen/Protocol: Librium Claeared for Rehab Admission: No Breathalyzer - Breathalyzer Breathalyzer: 0.010 Urine Drug Screen - Test Device Lot number: [id number] Expiration date: 05/08/21 - Control Is test valid?: Yes - Results Drug screen NEGATIVE: No Urine drug screen results: [facility]-Cocaine Inpatient Rehab Admission - Rehab Decision to Admit Inpatient rehab admission?: No
[2019-10-30] MEDS ORDERED: BISMUTH SUBSALICYLATE 524 MG/30 ML UD PO PRN (20:55)
[2019-10-30] MEDS ORDERED: P-EPHED 60MG/TRIPROLIDI 2.5MG TABLET PO PRN (20:55)
[2019-10-30] MEDS ORDERED: ONDANSETRON *ODT* 4 MG TABLET SL PRN (20:55)
[2019-10-30] MEDS ORDERED: guaiFENesin 200 MG/10 ML 10 ML UNIT-DOSE CUPS PO PRN (20:55)
[2019-10-30] MEDS ORDERED: MAGNESIUM CITRATE 300 ML BOTTLE PO PRN (20:55)
[2019-10-30] MEDS ORDERED: hydrOXYzine PAMOATE 25 MG CAPSULE (FP) PO PRN (20:55)
[2019-10-30] MEDS ORDERED: IBUPROFEN 400 MG TABLET (FP) PO PRN (20:55)
[2019-10-30] MEDS ORDERED: MENTHOL/PHENOL 1 EACH UD MM PRN (20:55)
[2019-10-30] MEDS ORDERED: MAG HYDROX/AL HYDROX/SIMETH 30 ML UNIT-DOSE CUP PO PRN (20:55)
[2019-10-30] MEDS ORDERED: ACETAMINOPHEN 325 MG TABLET (FP) PO PRN ×2 (20:55)
[2019-10-30] MEDS ORDERED: MAGNESIUM HYDROX 2400MG/30ML ORAL SUSPENSION 30 ML CUP PO PRN (20:55)
[2019-10-30] MEDS ORDERED: METHOCARBAMOL 500 MG TABLET PO PRN (20:55)
[2019-10-30] MEDS ORDERED: LORazepam 1 MG TABLET PO PRN (20:56)
[2019-10-30] MEDS: THIAMINE HCL 100 MG TABLET (FP) PO SCH (21:57)
[2019-10-30] MEDS: MELATONIN 5 MG TABLETS PO PRN (21:58)
[2019-10-30] MEDS: LORazepam 2 MG TABLET PO SCH (22:17)
[2019-10-31] MEDS: LORazepam 2 MG TABLET PO SCH ×4 (05:54→22:06)
--- NOTE | 2019-10-31 11:52 | PN ---
S CIWA - CIWA Score Nausea/Vomitin-No Nausea/No Vomiting Muscle Tremors: 2 Anxiety: 1-Mildly Anxious Agitation: 2 Paroxysmal Sweats: 1-Minimal Palms Moist Orientation: 0-Oriented Tacttile Disturbances: 0-None Auditory Disturbances: 0-None Visual Disturbances: 0-None Headache: 0-None Present CIWA-Ar Total Score: 6 BHS Progress Note (SOAP) Subjective: tired sleepy sweats Objective: 10/31/19 11:51 Vital Signs Temperature 97.5 F L 10/31/19 09:12 Pulse Rate 67 10/31/19 09:12 Respiratory Rate 18 10/31/19 09:12 Blood Pressure 112/67 10/31/19 09:12 O2 Sat by Pulse Oximetry (%) labs pending aaox3 ambulating no acute distress Assessment: 10/31/19 11:51 withdrawal sx Plan: continue detox increase fluids
[2019-10-31] MEDS: PRENATAL VITAMINS W/ FOLIC ACID TABLET (FP) PO SCH (11:53)
[2019-10-31 12:18] LABS: HEMATOCRIT 39.1 % (35.4-49); HEMOGLOBIN 12.9 GM/dL (11.7-16.9); MCH 29.3 pg (25.7-33.7); MCHC 33.1 g/dl (32.0-35.9); MEAN CELL VOLUME 88.7 fl (80-96); MEAN PLT VOLUME 8.2 fl (7.5-11.1); PLATELET COUNT 224 K/MM3 (134-434); RBC 4.41 M/mm3 (4.00-5.60); RDW 16.8 % (11.9-15.9); WHITE BLOOD COUNT 5.1 K/mm3 (4.0-10.0)
[2019-10-31 12:56] LABS: ALBUMIN 3.2 g/dl (3.4-5.0); BILIRUBIN,TOTAL 0.8 mg/dL (0.2-1); BLOOD UREA NITROGEN 20.2 mg/dL (7-18); CALCIUM 8.6 mg/dL (8.5-10.1); POTASSIUM 3.9 mmol/L (3.5-5.1); TOT PROT 5.9 g/dl (6.4-8.2)
[2019-10-31] MEDS: THIAMINE HCL 100 MG TABLET (FP) PO SCH (22:06)
[2019-10-31] MEDS: MELATONIN 5 MG TABLETS PO PRN (22:06)
[2019-11-01] MEDS: LORazepam 1 MG TABLET PO SCH ×4 (05:28→22:09)
--- NOTE | 2019-11-01 09:01 | PN ---
S CIWA - CIWA Score Nausea/Vomitin-No Nausea/No Vomiting Muscle Tremors: 2 Anxiety: 2 Agitation: 0-Normal Activity Paroxysmal Sweats: 2 Orientation: 0-Oriented Tacttile Disturbances: 1-Very Mild Itch/Numbness Auditory Disturbances: 0-None Visual Disturbances: 1-Very Mild Sensitivity Headache: 0-None Present CIWA-Ar Total Score: 8 BHS Progress Note (SOAP) Subjective: patient is a 54 yo male w/ alcohol dependence on Ativan detox protocol c/o of shakes, chills, irritability and interrupted sleep Objective: 11/01/19 09:01 Vital Signs Temperature 97.3 F L 11/01/19 06:30 Pulse Rate 67 11/01/19 06:30 Respiratory Rate 18 11/01/19 06:30 Blood Pressure 147/78 11/01/19 06:30 O2 Sat by Pulse Oximetry (%) Laboratory Last Values WBC 5.1 K/mm3 (4.0-10.0) 10/31/19 08:00 RBC 4.41 M/mm3 (4.00-5.60) 10/31/19 08:00 Hgb 12.9 GM/dL (11.7-16.9) 10/31/19 08:00 Hct 39.1 % (35.4-49) 10/31/19 08:00 MCV 88.7 fl (80-96) 10/31/19 08:00 MCH 29.3 pg (25.7-33.7) 10/31/19 08:00 MCHC 33.1 g/dl (32.0-35.9) 10/31/19 08:00 RDW 16.8 % (11.9-15.9) H 10/31/19 08:00 Plt Count 224 K/MM3 (134-434) 10/31/19 08:00 MPV 8.2 fl (7.5-11.1) 10/31/19 08:00 Sodium 144 mmol/L (136-145) 10/31/19 08:00 Potassium 3.9 mmol/L (3.5-5.1) 10/31/19 08:00 Chloride 109 mmol/L (98-107) H 10/31/19 08:00 Carbon Dioxide 28 mmol/L (21-32) 10/31/19 08:00 Anion Gap 7 MMOL/L (8-16) L 10/31/19 08:00 BUN 20.2 mg/dL (7-18) H 10/31/19 08:00 Creatinine 1.0 mg/dL (0.55-1.3) 10/31/19 08:00 Est GFR (CKD-EPI)AfAm 97.08 10/31/19 08:00 Est GFR (CKD-EPI)NonAf 83.76 10/31/19 08:00 Random Glucose 134 mg/dL (74-106) H 10/31/19 08:00 Calcium 8.6 mg/dL (8.5-10.1) 10/31/19 08:00 Total Bilirubin 0.8 mg/dL (0.2-1) 10/31/19 08:00 AST 31 U/L (15-37) 10/31/19 08:00 ALT 57 U/L (13-61) 10/31/19 08:00 Alkaline Phosphatase 55 U/L (45-117) 10/31/19 08:00 Total Protein 5.9 g/dl (6.4-8.2) L 10/31/19 08:00 Albumin 3.2 g/dl (3.4-5.0) L 10/31/19 08:00 RPR Titer Nonreactive (NONREACTIVE) 10/31/19 08:00 Assessment: 11/01/19 11:40 Aox3 no acute distress No adventitious breath sounds Full ROM no gait disturbance ambulating in the unit withdrawal symptoms Plan: increase fluids continue detox continue to monitor
[2019-11-01] MEDS: TETRAHYDROZOLINE HCL EYE DROPS OU SCH ×5 (11:00→22:57)
[2019-11-01] MEDS: PRENATAL VITAMINS W/ FOLIC ACID TABLET (FP) PO SCH (11:00)
--- NOTE | 2019-11-01 11:29 | PN ---
BHS Progress Note Note: pt c/o itchy eyes puffy around the eyes some redness noted visine ordered, encouraged cold compress to apply around the eyes to reduce any puffiness.
[2019-11-01] MEDS: THIAMINE HCL 100 MG TABLET (FP) PO SCH (22:09)
[2019-11-02] MEDS ORDERED: LORazepam 0.5 MG TABLET PO PRN
[2019-11-02] MEDS: LORazepam 0.5 MG TABLET PO SCH ×4 (06:38→22:42)
[2019-11-02] MEDS: TETRAHYDROZOLINE HCL EYE DROPS OU SCH ×4 (11:05→22:43)
[2019-11-02] MEDS: PRENATAL VITAMINS W/ FOLIC ACID TABLET (FP) PO SCH (11:05)
[2019-11-02] MEDS ORDERED: HYDROCORTISONE 1% TOPICAL CREAM 30 GM TUBE TP PRN (12:51)
--- NOTE | 2019-11-02 13:04 | PN ---
BHS CIWA - CIWA Score Nausea/Vomitin-No Nausea/No Vomiting Muscle Tremors: 2 Anxiety: 1-Mildly Anxious Agitation: 1-Slight > Activity Paroxysmal Sweats: No Perspiration Orientation: 0-Oriented Tacttile Disturbances: 0-None Auditory Disturbances: 0-None Visual Disturbances: 0-None Headache: 0-None Present CIWA-Ar Total Score: 4 BHS Progress Note (SOAP) Subjective: dry/itch to face area Objective: 11/02/19 13:04 Vital Signs Temperature 98.1 F 11/02/19 09:46 Pulse Rate 72 11/02/19 09:46 Respiratory Rate 18 11/02/19 09:46 Blood Pressure 123/77 11/02/19 09:46 O2 Sat by Pulse Oximetry (%) aaox3 ambulating no acute distress Assessment: 11/02/19 13:22 mild withdrawals mild redness noted to cheek area appears to be a rash Plan: hydrocortizone cream increase fluids d/c in am
[2019-11-02] MEDS: THIAMINE HCL 100 MG TABLET (FP) PO SCH (22:42)
[2019-11-02] MEDS ORDERED: MELATONIN 5 MG TABLETS PO ONE (23:01)
[2019-11-03] MEDS ORDERED: LORazepam 0.5 MG TABLET PO ONE (05:00)
[2019-11-03 10:43] VITALS: PULSE 81
[2019-11-03] MEDS: PRENATAL VITAMINS W/ FOLIC ACID TABLET (FP) PO SCH (11:06)
[2019-11-03] MEDS: TETRAHYDROZOLINE HCL EYE DROPS OU SCH ×3 (11:06→18:06)
--- NOTE | 2019-11-03 14:09 | DS ---
[facility] Detox Discharge Summary Admission Date: 10/30/19 Discharge Date: 11/03/19 - History Present History: Alcohol Dependence, Cocaine Dependence Additional Comments: PATIENT GOING ON TO [facility] ([place], [place]) FOR AFTERCARE. PATIENT WAS DISCHARGED FROM DETOX UNIT TO BE TAKEN OVER TO REHAB UNIT IN STABLE MEDICAL CONDITION. Pertinent Past History: Nicotine Dependence, Type II DM. - Physical Exam Results Vital Signs: Vital Signs Temperature 97.7 F 11/03/19 10:00 Pulse Rate 81 11/03/19 10:00 Respiratory Rate 18 11/03/19 10:00 Blood Pressure 155/95 11/03/19 10:00 O2 Sat by Pulse Oximetry (%) Pertinent Admission Physical Exam Findings: WITHDRAWAL SYMPTOMS. Laboratory Tests 10/31/19 10/31/19 10/31/19 08:00 08:00 08:00 WBC 5.1 RBC 4.41 Hgb 12.9 Hct 39.1 MCV 88.7 MCH 29.3 MCHC 33.1 RDW 16.8 H Plt Count 224 MPV 8.2 Sodium 144 Potassium 3.9 Chloride 109 H Carbon Dioxide 28 Anion Gap 7 L BUN 20.2 H Creatinine 1.0 Est GFR (CKD-EPI)AfAm 97.08 Est GFR (CKD-EPI)NonAf 83.76 Random Glucose 134 H Calcium 8.6 Total Bilirubin 0.8 AST 31 ALT 57 Alkaline Phosphatase 55 Total Protein 5.9 L Albumin 3.2 L RPR Titer Nonreactive LABS NOTED. - Treatment Hospital Course: Detox Protocol Followed, Detoxed Safely, Responded well, Discharged Condition Good, Rehab Referral Accepted Patient has Accepted a Rehab Referral to: [facility] ([place], [place]). - Medication Discharge Medications: Ambulatory Orders NK [No Known Home Medication] 01/19/16 - Diagnosis (1) Cocaine dependence, uncomplicated Current Visit: Yes Status: Acute (2) Alcohol dependence with uncomplicated withdrawal Current Visit: Yes Status: Chronic (3) Cigarette nicotine dependence Current Visit: Yes Status: Chronic Qualifiers: Substance use status: in withdrawal Qualified Code(s): F17.213 - Nicotine dependence, cigarettes, with withdrawal (4) DM Diabetes mellitus type 2 Current Visit: Yes Status: Chronic - AMA Did Patient Leave Against Medical Advice: No
[2019-11-03 18:25] VITALS: BP 126/71; TEMP 97.3
== END 2019-11-03 07:20 | disposition other institution (70) | DRG 774 ==
LOC: YASAS 14:54 → Y6N 20:50
PROVIDERS: ADMIT Allergy & Immunology; ATTEND Allergy & Immunology
PROC: HZ2ZZZZ Detoxification Services for Substance Abuse Treatment (ICD-10-PCS; principal; 2019-10-30)
DX: F10.230 Alcohol dependence with withdrawal, uncomplicated (principal); F14.20 Cocaine dependence, uncomplicated; F16.20 Hallucinogen dependence, uncomplicated; F17.213 Nicotine dependence, cigarettes, with withdrawal; E11.9 Type 2 diabetes mellitus without complications; R21 Rash and other nonspecific skin eruption; Z91.018 Allergy to other foods; Z88.8 Allergy status to other drugs, medicaments and biological substances; Z91.011 Allergy to milk products
CPT/HCPCS: 36415; 80053; 85027; 86593

== ENCOUNTER 2019-11-03 19:28 | Inpatient (IN) | payer OTHER ==
--- NOTE | 2019-11-03 20:47 | HP ---
[facility] Rehab Assess/Revision - Admission History Admitted to Rehab from: [facility] Date of Admission to Rehab: 11/03/2019 - Vital signs Vital Signs: Vital Signs Temperature 97.5 F L 11/03/19 19:30 Pulse Rate 89 11/03/19 19:30 Respiratory Rate 17 11/03/19 19:30 Blood Pressure 121/95 11/03/19 19:30 O2 Sat by Pulse Oximetry (%) - Findings Detox History & Physical reviewed: Yes Concur with findings: Yes Inpatient Rehab Admission - Rehab Decision to Admit Inpatient rehab admission?: Yes - Initial Determination Are CD services needed?: Yes Free of communicable disease: No Not in need of hospitalization: Yes - Rehab Admission Criteria Previous failed treatment: Yes Poor recovery environment: Yes Comorbidities: Yes Lacks judgement: No Patient is meeting Inpatient Rehab admission criteria:: Yes
[2019-11-03] MEDS ORDERED: guaiFENesin 200 MG/10 ML 10 ML UNIT-DOSE CUPS PO PRN (20:49)
[2019-11-03] MEDS ORDERED: MAGNESIUM CITRATE 300 ML BOTTLE PO PRN (20:49)
[2019-11-03] MEDS ORDERED: IBUPROFEN 400 MG TABLET (FP) PO PRN (20:49)
[2019-11-03] MEDS ORDERED: LOPERAMIDE HCL 2 MG CAPSULE PO PRN (20:49)
[2019-11-03] MEDS ORDERED: ACETAMINOPHEN 325 MG TABLET (FP) PO PRN (20:49)
[2019-11-03] MEDS ORDERED: NICOTINE POLACRILEX 2 MG GUM BUC PRN (20:49)
[2019-11-03] MEDS ORDERED: MAG HYDROX/AL HYDROX/SIMETH 30 ML UNIT-DOSE CUP PO PRN (20:49)
[2019-11-03] MEDS ORDERED: MENTHOL/PHENOL 1 EACH UD MM PRN (20:49)
[2019-11-03] MEDS ORDERED: MAGNESIUM HYDROX 2400MG/30ML ORAL SUSPENSION 30 ML CUP PO PRN (20:49)
[2019-11-03] MEDS: MELATONIN 5 MG TABLETS PO PRN (23:00)
[2019-11-03] MEDS: THIAMINE HCL 100 MG TABLET (FP) PO SCH (23:00)
[2019-11-04] MEDS ORDERED: NICOTINE 14 MG/24 HOURS TOPICAL PATCH TD SCH (10:00)
[2019-11-04] MEDS: PRENATAL VITAMINS W/ FOLIC ACID TABLET (FP) PO SCH (10:47)
[2019-11-04] MEDS: NICOTINE 14 MG/24 HOURS TOPICAL PATCH TD SCH (10:47)
[2019-11-04] MEDS: THIAMINE HCL 100 MG TABLET (FP) PO SCH (21:42)
[2019-11-05] MEDS: MELATONIN 5 MG TABLETS PO PRN ×2 (01:43→21:32)
[2019-11-05] MEDS: NICOTINE 14 MG/24 HOURS TOPICAL PATCH TD SCH (11:00)
[2019-11-05] MEDS: PRENATAL VITAMINS W/ FOLIC ACID TABLET (FP) PO SCH (11:01)
--- NOTE | 2019-11-05 15:59 | PN ---
S Progress Note Note: Pt is a 54 y/o male with a hx of WILLARD-alcohol,crack/cocaine,PCP admitted to rehab from [address] on 11/03/19. PMHx:DM(no meds-diet/exercise);on/off Elevated BP but denies HTN; Psych Hx:Denies any hx; Denies s/h/i. Denies hx of Insomnia but reports not sleeping well since in rehab. Declined evaluation for Insomnia work up. Does not want stronger sleeping medication. pt reports he has no primary care provider but goes to ER for medical care. Vital Signs - 24 hr 11/05/19 11/05/19 11/05/19 00:30 03:30 07:04 Temperature 98.1 F Pulse Rate 77 Respiratory 18 18 18 Rate Blood Pressure 147/88 Alert o x 3,denies s/h/i or hallucinations nad oob ambulating with steady gait extremities/skin:no edema;Calluses on both great toes. A/P new rehab pt Maintain safety Clonidine 0.1 mg po BID prn for elevated BP with parameters
[2019-11-05] MEDS ORDERED: cloNIDine HCL 0.1 MG TABLET PO PRN (16:07)
[2019-11-05] MEDS: THIAMINE HCL 100 MG TABLET (FP) PO SCH (21:32)
[2019-11-05] MEDS ORDERED: cloNIDine HCL 0.1 MG TABLET PO SCH (22:00)
[2019-11-06] MEDS: PRENATAL VITAMINS W/ FOLIC ACID TABLET (FP) PO SCH (10:13)
[2019-11-06] MEDS: NICOTINE 14 MG/24 HOURS TOPICAL PATCH TD SCH (10:13)
--- NOTE | 2019-11-06 14:40 | CONSULT ---
[facility] Psychiatric Consult - Data Date of interview: 11/06/19 Admission source: 6N Identifying data: Patient is a 54 years old Black male, father of11 children, employed as a convenience store manager, domiciled admitted from detox on 11/03/19 for inpatient rehabilitation for alcohol, cocaine and phencyclidine Substance Abuse History: Reports history of alcohol, cocaine and pcp use. Refer to addiction counselor's summary for further information Medical History: Significant for diabetes mellitus. Smokes cigarettes 1ppd Psychiatric History: Denies history of previous psychiatric treatment. However, reports sleeping poorly Physical/Sexual Abuse/Trauma History: Denies history of abuse as a child or DV relationship as an adult Mental Status Exam - Mental Status Exam Alert and Oriented to: Time, Place Cognitive Function: Fair Patient Appearance: Well Groomed Mood: Euthymic Patient Behavior: Cooperative Speech Pattern: Clear Voice Loudness: Normal Thought Process: Intact, Goal Oriented Hallucinations: Denies Suicidal Ideation: Denies Homicidal Ideation: Denies Insight/Judgement: Fair Sleep: Poorly Appetite: Good Muscle strength/Tone: Normal Gait/Station: Normal Psychiatric Findings - Problem List ([place] 1, 2,3) (1) Substance-induced sleep disorder Current Visit: Yes Status: Acute (2) Alcohol dependence Current Visit: Yes Status: Acute (3) Cocaine dependence Current Visit: Yes Status: Acute (4) Nicotine dependence Current Visit: Yes Status: Chronic (5) DM Diabetes mellitus type 2 Current Visit: No Status: Chronic - Initial Treatment Plan Initial Treatment Plan: 1) Start Belsomra 10 mg po HS prn for insomnia. 2) Continue inpatient rehabilitation
[2019-11-06] MEDS: SUVOREXANT 10 MG TABLET PO PRN (21:27)
[2019-11-06] MEDS: THIAMINE HCL 100 MG TABLET (FP) PO SCH (21:27)
[2019-11-07] MEDS: PRENATAL VITAMINS W/ FOLIC ACID TABLET (FP) PO SCH (10:40)
[2019-11-07] MEDS: NICOTINE 14 MG/24 HOURS TOPICAL PATCH TD SCH (10:41)
--- NOTE | 2019-11-07 11:23 | EKG ---
Test Reason : Blood Pressure : / mmHG Vent. Rate : 078 BPM Atrial Rate : 078 BPM P-R Int : 162 ms QRS Dur : 090 ms QT Int : 382 ms P-R-T Axes : 057 045 040 degrees QTc Int : 435 ms NORMAL SINUS RHYTHM NONSPECIFIC T WAVE ABNORMALITY ABNORMAL ECG NO PREVIOUS ECGS AVAILABLE Confirmed by Toney Holley MD ([id number]) on 11/07/2019 11:23:26 AM Referred By: Confirmed By:Toney Holley MD
[2019-11-07] MEDS: THIAMINE HCL 100 MG TABLET (FP) PO SCH (21:34)
[2019-11-07] MEDS: SUVOREXANT 10 MG TABLET PO PRN (21:36)
[2019-11-08] MEDS: PRENATAL VITAMINS W/ FOLIC ACID TABLET (FP) PO SCH (10:43)
[2019-11-08] MEDS: NICOTINE 14 MG/24 HOURS TOPICAL PATCH TD SCH (10:43)
[2019-11-08] MEDS: VITAMINS A AND D TOPICAL OINTMENT 60 GM TUBE TP SCH (10:43)
[2019-11-08] MEDS: TOLNAFTATE 1% CREAM 15 GM TUBE TP SCH ×2 (10:44→22:47)
[2019-11-08] MEDS: THIAMINE HCL 100 MG TABLET (FP) PO SCH (21:46)
[2019-11-08] MEDS: METHOCARBAMOL 500 MG TABLET PO PRN (21:48)
[2019-11-09] MEDS: PRENATAL VITAMINS W/ FOLIC ACID TABLET (FP) PO SCH (10:38)
[2019-11-09] MEDS: NICOTINE 14 MG/24 HOURS TOPICAL PATCH TD SCH (10:39)
[2019-11-09] MEDS: TOLNAFTATE 1% CREAM 15 GM TUBE TP SCH ×2 (10:39→21:30)
[2019-11-09] MEDS: VITAMINS A AND D TOPICAL OINTMENT 60 GM TUBE TP SCH (10:39)
[2019-11-09] MEDS: THIAMINE HCL 100 MG TABLET (FP) PO SCH (21:29)
[2019-11-09] MEDS: METHOCARBAMOL 500 MG TABLET PO PRN (21:29)
[2019-11-09] MEDS ORDERED: SUVOREXANT 10 MG TABLET PO PRN (22:00)
[2019-11-10] MEDS: PRENATAL VITAMINS W/ FOLIC ACID TABLET (FP) PO SCH (10:08)
[2019-11-10] MEDS: NICOTINE 14 MG/24 HOURS TOPICAL PATCH TD SCH (10:08)
[2019-11-10] MEDS: TOLNAFTATE 1% CREAM 15 GM TUBE TP SCH ×2 (10:08→21:59)
[2019-11-10] MEDS: VITAMINS A AND D TOPICAL OINTMENT 60 GM TUBE TP SCH (10:09)
[2019-11-10] MEDS: METHOCARBAMOL 500 MG TABLET PO PRN ×2 (10:10→21:42)
--- NOTE | 2019-11-10 15:56 | PN ---
BHS Progress Note Note: pt c/o right shoulder pain w/ exercise , requesting increase in mm relaxant dose . Vital Signs - 24 hr 11/10/19 11/10/19 11/10/19 00:30 03:30 06:59 Temperature 97.4 F L Pulse Rate 71 Respiratory 18 18 18 Rate Blood Pressure 125/83 O : good AROM , no deformity A : Shoulder strain, RIGHT P : increase Robaxin to 750 mg tid prn
[2019-11-10] MEDS: THIAMINE HCL 100 MG TABLET (FP) PO SCH (21:41)
[2019-11-11] MEDS: NICOTINE 14 MG/24 HOURS TOPICAL PATCH TD SCH (10:29)
[2019-11-11] MEDS: PRENATAL VITAMINS W/ FOLIC ACID TABLET (FP) PO SCH (10:29)
[2019-11-11] MEDS: TOLNAFTATE 1% CREAM 15 GM TUBE TP SCH ×2 (10:30→22:15)
[2019-11-11] MEDS: VITAMINS A AND D TOPICAL OINTMENT 60 GM TUBE TP SCH (10:30)
[2019-11-11] MEDS: THIAMINE HCL 100 MG TABLET (FP) PO SCH (22:15)
[2019-11-12] MEDS: NICOTINE 14 MG/24 HOURS TOPICAL PATCH TD SCH (10:47)
[2019-11-12] MEDS: PRENATAL VITAMINS W/ FOLIC ACID TABLET (FP) PO SCH (10:47)
[2019-11-12] MEDS: TOLNAFTATE 1% CREAM 15 GM TUBE TP SCH ×2 (10:48→21:34)
[2019-11-12] MEDS: VITAMINS A AND D TOPICAL OINTMENT 60 GM TUBE TP SCH (10:48)
[2019-11-12] MEDS: METHOCARBAMOL 500 MG TABLET PO PRN ×2 (10:50→21:36)
[2019-11-12] MEDS ORDERED: TETRAHYDROZOLINE HCL EYE DROPS OS PRN (12:54)
[2019-11-12] MEDS: THIAMINE HCL 100 MG TABLET (FP) PO SCH (21:34)
[2019-11-12] MEDS: TETRAHYDROZOLINE HCL EYE DROPS OS PRN (21:36)
[2019-11-12] MEDS ORDERED: SUVOREXANT 10 MG TABLET PO PRN (22:00)
[2019-11-13] MEDS: NICOTINE 14 MG/24 HOURS TOPICAL PATCH TD SCH (10:27)
[2019-11-13] MEDS: TOLNAFTATE 1% CREAM 15 GM TUBE TP SCH ×2 (10:29→21:56)
[2019-11-13] MEDS: VITAMINS A AND D TOPICAL OINTMENT 60 GM TUBE TP SCH (10:29)
[2019-11-13] MEDS: PRENATAL VITAMINS W/ FOLIC ACID TABLET (FP) PO SCH (10:29)
[2019-11-13] MEDS: THIAMINE HCL 100 MG TABLET (FP) PO SCH (21:56)
[2019-11-14] MEDS: NICOTINE 14 MG/24 HOURS TOPICAL PATCH TD SCH (09:50)
[2019-11-14] MEDS: PRENATAL VITAMINS W/ FOLIC ACID TABLET (FP) PO SCH (09:52)
[2019-11-14] MEDS: VITAMINS A AND D TOPICAL OINTMENT 60 GM TUBE TP SCH (09:54)
[2019-11-14] MEDS: TOLNAFTATE 1% CREAM 15 GM TUBE TP SCH ×2 (09:54→21:36)
--- NOTE | 2019-11-14 11:16 | PN ---
[facility] Progress Note Note: Pt c/o sorethroat and took cepstat lozenges with minimal relief.Pt reports he had strep throat some time last month or more at [facility] program and was "given Antibiotics but did not finish it". Pt has no information on name of antibiotic and unable to provide exact timeline of treatment but says he has the remainder at home. . Vital Signs - 24 hr 11/14/19 11/14/19 11/14/19 00:30 03:30 07:39 Temperature 97.8 F Pulse Rate 85 Respiratory 18 18 18 Rate Blood Pressure 128/87 Alert o x 3 nad oob ambulating with steady gait Heent:Normocephalic,eomi,jered,no pharyngeal redness or swelling, no exudates. cardiac:s1 s2,rrr lungs:cta,becky. A/P r/o strep throat Throat culture specimen ordered and sent to lab. continue cepastat increase po fluids
[2019-11-14] MEDS: THIAMINE HCL 100 MG TABLET (FP) PO SCH (21:36)
[2019-11-15] MEDS: PRENATAL VITAMINS W/ FOLIC ACID TABLET (FP) PO SCH (09:56)
[2019-11-15] MEDS: VITAMINS A AND D TOPICAL OINTMENT 60 GM TUBE TP SCH (09:57)
[2019-11-15] MEDS: TETRAHYDROZOLINE HCL EYE DROPS OS PRN (09:57)
[2019-11-15] MEDS: NICOTINE 14 MG/24 HOURS TOPICAL PATCH TD SCH (09:57)
[2019-11-15] MEDS: TOLNAFTATE 1% CREAM 15 GM TUBE TP SCH ×2 (09:57→21:53)
[2019-11-15] MEDS: THIAMINE HCL 100 MG TABLET (FP) PO SCH (21:53)
[2019-11-15] MEDS ORDERED: SUVOREXANT 10 MG TABLET PO PRN (22:00)
[2019-11-16] MEDS: PRENATAL VITAMINS W/ FOLIC ACID TABLET (FP) PO SCH (10:41)
[2019-11-16] MEDS: NICOTINE 14 MG/24 HOURS TOPICAL PATCH TD SCH (10:41)
[2019-11-16] MEDS: TOLNAFTATE 1% CREAM 15 GM TUBE TP SCH ×2 (10:42→22:16)
[2019-11-16] MEDS: VITAMINS A AND D TOPICAL OINTMENT 60 GM TUBE TP SCH (10:42)
[2019-11-16] MEDS: THIAMINE HCL 100 MG TABLET (FP) PO SCH (22:16)
[2019-11-17] MEDS: PRENATAL VITAMINS W/ FOLIC ACID TABLET (FP) PO SCH (10:25)
[2019-11-17] MEDS: TOLNAFTATE 1% CREAM 15 GM TUBE TP SCH ×2 (10:26→21:55)
[2019-11-17] MEDS: NICOTINE 14 MG/24 HOURS TOPICAL PATCH TD SCH (10:26)
[2019-11-17] MEDS: VITAMINS A AND D TOPICAL OINTMENT 60 GM TUBE TP SCH (10:27)
[2019-11-17] MEDS: THIAMINE HCL 100 MG TABLET (FP) PO SCH (21:55)
[2019-11-18] MEDS: NICOTINE 14 MG/24 HOURS TOPICAL PATCH TD SCH (10:11)
[2019-11-18] MEDS: PRENATAL VITAMINS W/ FOLIC ACID TABLET (FP) PO SCH (10:11)
[2019-11-18] MEDS: TOLNAFTATE 1% CREAM 15 GM TUBE TP SCH ×2 (10:12→21:48)
[2019-11-18] MEDS: VITAMINS A AND D TOPICAL OINTMENT 60 GM TUBE TP SCH (11:07)
[2019-11-18] MEDS: THIAMINE HCL 100 MG TABLET (FP) PO SCH (21:48)
[2019-11-19] MEDS: TOLNAFTATE 1% CREAM 15 GM TUBE TP SCH ×2 (10:27→21:59)
[2019-11-19] MEDS: NICOTINE 14 MG/24 HOURS TOPICAL PATCH TD SCH (10:27)
[2019-11-19] MEDS: PRENATAL VITAMINS W/ FOLIC ACID TABLET (FP) PO SCH (10:27)
[2019-11-19] MEDS: TETRAHYDROZOLINE HCL EYE DROPS OS PRN (10:28)
[2019-11-19] MEDS: VITAMINS A AND D TOPICAL OINTMENT 60 GM TUBE TP SCH (12:34)
[2019-11-19] MEDS: THIAMINE HCL 100 MG TABLET (FP) PO SCH (21:59)
[2019-11-20] MEDS: NICOTINE 14 MG/24 HOURS TOPICAL PATCH TD SCH (10:28)
[2019-11-20] MEDS: PRENATAL VITAMINS W/ FOLIC ACID TABLET (FP) PO SCH (10:28)
[2019-11-20] MEDS: TETRAHYDROZOLINE HCL EYE DROPS OS PRN (10:29)
[2019-11-20] MEDS: VITAMINS A AND D TOPICAL OINTMENT 60 GM TUBE TP SCH (10:29)
[2019-11-20] MEDS: TOLNAFTATE 1% CREAM 15 GM TUBE TP SCH ×2 (10:29→21:23)
[2019-11-20] MEDS: THIAMINE HCL 100 MG TABLET (FP) PO SCH (21:22)
--- NOTE | 2019-11-20 21:31 | PN ---
S Progress Note Note: Microbiology 11/14/19 13:20 Throat Throat Culture - Final NO BETA HEMOLYTIC STREPTOCOCCI ISOLATED Pt denies any further symptoms of sorethroat within 24 hrs after initial complaint. Above test results noted.
[2019-11-21] MEDS: PRENATAL VITAMINS W/ FOLIC ACID TABLET (FP) PO SCH (10:38)
[2019-11-21] MEDS: NICOTINE 14 MG/24 HOURS TOPICAL PATCH TD SCH (10:38)
[2019-11-21] MEDS: TOLNAFTATE 1% CREAM 15 GM TUBE TP SCH ×2 (10:39→21:39)
[2019-11-21] MEDS: VITAMINS A AND D TOPICAL OINTMENT 60 GM TUBE TP SCH (10:39)
[2019-11-21] MEDS: TETRAHYDROZOLINE HCL EYE DROPS OS PRN (10:39)
--- NOTE | 2019-11-21 15:42 | DS ---
[facility] Rehab Discharge Summary - [facility] Rehab Discharge Summary Admission Date: 11/03/19 Discharge Date: 11/21/19 - History Present History: Alcohol dependence, Cannabis dependence, Cocaine dependence Additional Comments: Pt is a 54 y/o male with a hx of WILLARD admitted to rehab and scheduled to discharge on 11/22/19 after completion of treatment. Pt now states he had primary care with [facility] and likely to follow up there for medical management. Pt met with his counselor Ms Chiquita Hu for CD aftercare referral planning. Pertinent Past History: Hx Type 2 DM(no med) - Discharge Physical Exam Vital Signs: Vital Signs Temperature 97.6 F 11/21/19 07:04 Pulse Rate 79 11/21/19 07:04 Respiratory Rate 18 11/21/19 07:04 Blood Pressure 118/78 11/21/19 07:04 O2 Sat by Pulse Oximetry (%) Alert o x 3,denies s/h/i nad oob ambulating with steady gait. cardiac:s1 s2,rrr lungs:cta,becky. abdomen:+bs,soft,nt,nd extremities/skin:no edema; skin intact Pertinent Admission Physical Exam Findings: stable and unchanged - Treatment Discharge Condition: Discharge condition good Hospital Course: Rehabilitated safely Responded well Pt participated in groups and individual sessions in treatment C/o throat /URI sx and throat swab was negative for pathogen - Medication Discharge Medications: Ambulatory Orders NK [No Known Home Medication] 01/19/16 - Medication-Assisted Treatment (MAT) Medication-Assisted Treatment (MAT): No - Discharge Instructions Diet, activity, other medical instructions: Diet:ASIA/NCS Activity: oob ad irving Other medical instructions:follow up with CD aftercare recommendations as scheduled. follow up with primary care at [facility] outpt clinic within 1-2 weeks after discharge. - Diagnosis (1) Alcohol dependence Current Visit: Yes Status: Chronic Qualifiers: Substance use status: uncomplicated Qualified Code(s): F10.20 - Alcohol dependence, uncomplicated (2) Cocaine dependence Current Visit: Yes Status: Chronic Qualifiers: Substance use status: uncomplicated Qualified Code(s): F14.20 - Cocaine dependence, uncomplicated (3) Nicotine dependence Current Visit: Yes Status: Chronic Qualifiers: Nicotine product type: cigarettes Substance use status: uncomplicated Qualified Code(s): F17.210 - Nicotine dependence, cigarettes, uncomplicated (4) Cannabis dependence Current Visit: Yes Status: Chronic - Follow-up Referral Minutes to complete discharge: 30 - AMA Did Patient Leave Against Medical Advice: No
[2019-11-21] MEDS: THIAMINE HCL 100 MG TABLET (FP) PO SCH (21:37)
[2019-11-22 07:20] VITALS: BP 112/72; PULSE 89; TEMP 97.4
--- NOTE | 2019-11-22 09:48 | PN ---
S Progress Note Note: Pt is a 54 y/o male with a hx of WILLARD completed rehab and discharged today as scheduled. Vital Signs - 24 hr 11/22/19 11/22/19 00:30 07:19 Temperature 97.4 F L Pulse Rate 89 Respiratory 18 18 Rate Blood Pressure 112/72 Alert o x 3,denies s/h/i nad oob ambulating with steady gait A/P Medically stable D/C pt today D/W pt to follow up wit CD aftercare and primary care as recommended and scheduled.
== END 2019-11-22 09:45 | disposition home or self-care (01) | DRG 772 ==
LOC: YASAS 19:28 → Y5N 19:29
PROVIDERS: ADMIT Allergy & Immunology; ATTEND Allergy & Immunology
PROC: HZ42ZZZ Group Counseling for Substance Abuse Treatment, Cognitive-Behavioral (ICD-10-PCS; principal; 2019-11-03)
DX: F10.20 Alcohol dependence, uncomplicated (principal); F14.20 Cocaine dependence, uncomplicated; F16.20 Hallucinogen dependence, uncomplicated; F12.20 Cannabis dependence, uncomplicated; F17.210 Nicotine dependence, cigarettes, uncomplicated; F19.24 Other psychoactive substance dependence with psychoactive substance-induced mood disorder; E11.9 Type 2 diabetes mellitus without complications; R03.0 Elevated blood-pressure reading, without diagnosis of hypertension; M25.511 Pain in right shoulder; S46.811A Strain of other muscles, fascia and tendons at shoulder and upper arm level, right arm, initial encounter; X58.XXXA Exposure to other specified factors, initial encounter; Y93.89 Activity, other specified; Y92.238 Other place in hospital as the place of occurrence of the external cause; Y99.8 Other external cause status
CPT/HCPCS: 87070; 93005; 93010

== ENCOUNTER 2020-05-07 19:58 | Emergency (ER) | payer OTHER ==
[2020-05-07 20:05] VITALS: BP 119/82; PULSE 65; BMI 22.7
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
[2020-05-07] MEDS ORDERED: ACETAMINOPHEN 1000 MG/100 ML VIAL (NON FORMULARY) IVPB ONE (20:29)
[2020-05-07] MEDS ORDERED: CLINDAMYCIN 600MG PREMIX IVPB 600 MG/50 ML BAG IVPB ONE (20:35)
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
[2020-05-07 21:17] LABS: BASO % 0.7 % (0-2.0); EOS % 2.3 % (0-4.5); HEMATOCRIT 37.9 % (35.4-49); HEMOGLOBIN 12.3 GM/dL (11.7-16.9); LYMPH % 33.3 % (8-40); MCH 30.1 pg (25.7-33.7); MCHC 32.4 g/dl (32.0-35.9); MEAN CELL VOLUME 92.7 fl (80-96); MEAN PLT VOLUME 9.3 fl (7.5-11.1); MONO % 8.4 % (3.8-10.2); NEUT % 55.3 % (42.8-82.8); PLATELET COUNT 138 K/MM3 (134-434); RBC 4.09 M/mm3 (4.00-5.60); RDW 17.9 % (11.9-15.9); WHITE BLOOD COUNT 4.9 K/mm3 (4.0-10.0)
[2020-05-07 22:06] LABS: ALBUMIN 2.8 g/dl (3.4-5.0); BILIRUBIN,TOTAL 0.5 mg/dL (0.2-1); BLOOD UREA NITROGEN 20.1 mg/dL (7-18); CALCIUM 8.2 mg/dL (8.5-10.1); POTASSIUM 3.5 mmol/L (3.5-5.1); TOT PROT 5.7 g/dl (6.4-8.2)
== END 2020-05-07 23:49 | disposition short-term general hospital (02) ==
LOC: JER 19:58
PROC: 3E03329 Introduction of Other Anti-infective into Peripheral Vein, Percutaneous Approach (ICD-10-PCS; principal; 2020-05-07)
PROC: 3E033GC Introduction of Other Therapeutic Substance into Peripheral Vein, Percutaneous Approach (ICD-10-PCS; 2020-05-07)
DX: S09.90XA Unspecified injury of head, initial encounter (principal)
CPT/HCPCS: 36415; 70450-TC; 70486-TC; 72125-TC; 73130-TC-RT-FY; 80053; 85025; 87040; 99285-25; J0131

== ENCOUNTER 2020-05-12 13:39 | Inpatient (IN) | payer OTHER ==
[2020-05-12] MEDS ORDERED: IBUPROFEN 400 MG TABLET (FP) PO PRN (14:22)
[2020-05-12] MEDS ORDERED: LOPERAMIDE HCL 2 MG CAPSULE PO PRN (14:22)
[2020-05-12] MEDS ORDERED: MAGNESIUM CITRATE 300 ML BOTTLE PO PRN (14:22)
[2020-05-12] MEDS ORDERED: MAG HYDROX/AL HYDROX/SIMETH 30 ML UNIT-DOSE CUP PO PRN (14:22)
[2020-05-12] MEDS ORDERED: MAGNESIUM HYDROX 2400MG/30ML ORAL SUSPENSION 30 ML CUP PO PRN (14:22)
[2020-05-12] MEDS ORDERED: NICOTINE POLACRILEX 2 MG GUM BUC PRN (14:22)
[2020-05-12] MEDS ORDERED: ACETAMINOPHEN 325 MG TABLET (FP) PO PRN (14:22)
[2020-05-12] MEDS ORDERED: guaiFENesin 200 MG/10 ML 10 ML UNIT-DOSE CUPS PO PRN (14:22)
[2020-05-12] MEDS ORDERED: hydrOXYzine PAMOATE 25 MG CAPSULE (FP) PO PRN (14:22)
[2020-05-12] MEDS ORDERED: P-EPHED 60MG/TRIPROLIDI 2.5MG TABLET PO PRN (14:22)
[2020-05-12] MEDS ORDERED: MENTHOL/PHENOL 1 EACH UD MM PRN (14:22)
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
[2020-05-12] MEDS ORDERED: CLINDAMYCIN HCL 150 MG CAPSULE (FP) PO ONE (14:57)
[2020-05-12] MEDS: THIAMINE HCL 100 MG TABLET (FP) PO SCH (21:22)
[2020-05-12] MEDS: CLINDAMYCIN HCL 150 MG CAPSULE (FP) PO SCH (21:23)
[2020-05-12] MEDS: MELATONIN 5 MG TABLETS PO SCH (21:24)
[2020-05-13] MEDS: CLINDAMYCIN HCL 150 MG CAPSULE (FP) PO SCH ×3 (06:49→21:30)
[2020-05-13] MEDS: PRENATAL VITAMINS W/ FOLIC ACID TABLET (FP) PO SCH (09:07)
[2020-05-13] MEDS: NICOTINE 7 MG/24 HOURS TOPICAL PATCH TD SCH (09:07)
[2020-05-13] MEDS ORDERED: PT OWN MED DRAWER 7, Y5N ONE (12:15)
[2020-05-13] MEDS: CLOTRIMAZOLE 1% CREAM 15 GM TUBE TP SCH ×3 (14:27→22:45)
[2020-05-13] MEDS: THIAMINE HCL 100 MG TABLET (FP) PO SCH (21:30)
[2020-05-13] MEDS: MELATONIN 5 MG TABLETS PO SCH (21:31)
[2020-05-14] MEDS ORDERED: PT OWN MED DRAWER 7, Y5N ONE (03:10)
[2020-05-14] MEDS: CLINDAMYCIN HCL 150 MG CAPSULE (FP) PO SCH ×3 (06:26→21:38)
[2020-05-14] MEDS: NICOTINE 7 MG/24 HOURS TOPICAL PATCH TD SCH (10:07)
[2020-05-14] MEDS: PRENATAL VITAMINS W/ FOLIC ACID TABLET (FP) PO SCH (10:07)
[2020-05-14] MEDS: CLOTRIMAZOLE 1% CREAM 15 GM TUBE TP SCH ×2 (10:08→21:38)
--- NOTE | 2020-05-14 15:33 | PN ---
[facility] Progress Note Note: Patient does not want to continue taking his antibiotic, which was ordered for 10 days for treatment of a cellulitis of the left lateral head above the eye. He is now on day 7 of the abx.He feels that his immune system is strong enough and that he has cleared the infection. I explained the need to continue the abx for 3 more days. I explained that I would not discontinue the abx, and although I believe he needs to finish the course, he has the right to refuse any medication. I informed the nursing and counseling staff of the same. The counselor plans to discuss this with the patient.
[2020-05-14] MEDS: MELATONIN 5 MG TABLETS PO SCH (21:38)
[2020-05-14] MEDS: THIAMINE HCL 100 MG TABLET (FP) PO SCH (21:38)
[2020-05-15] MEDS: CLINDAMYCIN HCL 150 MG CAPSULE (FP) PO SCH ×3 (06:33→21:36)
[2020-05-15] MEDS ORDERED: PT OWN MED DRAWER 7, Y5N ONE (08:24)
[2020-05-15] MEDS: CLOTRIMAZOLE 1% CREAM 15 GM TUBE TP SCH ×2 (09:39→21:37)
[2020-05-15] MEDS: NICOTINE 7 MG/24 HOURS TOPICAL PATCH TD SCH (09:40)
[2020-05-15] MEDS: PRENATAL VITAMINS W/ FOLIC ACID TABLET (FP) PO SCH (09:40)
[2020-05-15] MEDS: THIAMINE HCL 100 MG TABLET (FP) PO SCH (21:36)
[2020-05-15] MEDS: MELATONIN 5 MG TABLETS PO SCH (21:36)
[2020-05-16] MEDS: CLINDAMYCIN HCL 150 MG CAPSULE (FP) PO SCH ×3 (07:07→23:07)
[2020-05-16] MEDS: CLOTRIMAZOLE 1% CREAM 15 GM TUBE TP SCH ×2 (09:51→23:07)
[2020-05-16] MEDS: NICOTINE 7 MG/24 HOURS TOPICAL PATCH TD SCH (09:51)
[2020-05-16] MEDS: PRENATAL VITAMINS W/ FOLIC ACID TABLET (FP) PO SCH (09:51)
[2020-05-16] MEDS: MELATONIN 5 MG TABLETS PO SCH (23:07)
[2020-05-16] MEDS: THIAMINE HCL 100 MG TABLET (FP) PO SCH (23:07)
[2020-05-17] MEDS: CLINDAMYCIN HCL 150 MG CAPSULE (FP) PO SCH ×3 (07:08→22:12)
[2020-05-17] MEDS ORDERED: PT OWN MED DRAWER 7, Y5N ONE (09:20)
[2020-05-17] MEDS: PRENATAL VITAMINS W/ FOLIC ACID TABLET (FP) PO SCH (09:28)
[2020-05-17] MEDS: NICOTINE 7 MG/24 HOURS TOPICAL PATCH TD SCH (09:28)
[2020-05-17] MEDS: CLOTRIMAZOLE 1% CREAM 15 GM TUBE TP SCH ×2 (09:29→22:12)
[2020-05-17] MEDS: THIAMINE HCL 100 MG TABLET (FP) PO SCH (22:11)
[2020-05-17] MEDS: MELATONIN 5 MG TABLETS PO SCH (22:12)
[2020-05-18] MEDS: CLINDAMYCIN HCL 150 MG CAPSULE (FP) PO SCH ×3 (07:05→22:11)
[2020-05-18] MEDS: PRENATAL VITAMINS W/ FOLIC ACID TABLET (FP) PO SCH (09:26)
[2020-05-18] MEDS: CLOTRIMAZOLE 1% CREAM 15 GM TUBE TP SCH ×2 (09:27→22:10)
[2020-05-18] MEDS: NICOTINE 7 MG/24 HOURS TOPICAL PATCH TD SCH (09:27)
[2020-05-18] MEDS ORDERED: PT OWN MED DRAWER 7, Y5N ONE (19:59)
[2020-05-18] MEDS: MELATONIN 5 MG TABLETS PO SCH (22:10)
[2020-05-18] MEDS: THIAMINE HCL 100 MG TABLET (FP) PO SCH (22:11)
[2020-05-19] MEDS: PRENATAL VITAMINS W/ FOLIC ACID TABLET (FP) PO SCH (10:39)
[2020-05-19] MEDS: CLOTRIMAZOLE 1% CREAM 15 GM TUBE TP SCH ×2 (10:39→22:27)
[2020-05-19] MEDS: NICOTINE 7 MG/24 HOURS TOPICAL PATCH TD SCH (10:39)
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
[2020-05-19] MEDS ORDERED: PT OWN MED DRAWER 7, Y5N ONE (22:26)
[2020-05-19] MEDS: MELATONIN 5 MG TABLETS PO SCH (22:27)
[2020-05-19] MEDS: THIAMINE HCL 100 MG TABLET (FP) PO SCH (22:27)
[2020-05-20 08:35] VITALS: BP 114/72; PULSE 70; TEMP 98
--- NOTE | 2020-05-20 09:32 | PN ---
S Progress Note Note: Pt was discharged today as scheduled. pt was given all referral package to follow up with CD aftercare recommendations after discharge. Vital Signs - 24 hr 05/19/20 05/19/20 05/20/20 15:07 20:31 06:00 Temperature 98 F Pulse Rate 70 Respiratory 18 Rate Blood Pressure 114/72 O2 Sat by Pulse 96 97 97 Oximetry (%) Alert o x 3 nad oob ambulating with steady gait Active ROM all extremities. Medically stable D/c pt today.
== END 2020-05-20 08:30 | disposition home or self-care (01) | DRG 772 ==
LOC: YASAS 13:39 → Y3E 13:41
PROVIDERS: ADMIT Allergy & Immunology; ATTEND Allergy & Immunology
PROC: HZ42ZZZ Group Counseling for Substance Abuse Treatment, Cognitive-Behavioral (ICD-10-PCS; principal; 2020-05-12)
DX: F10.20 Alcohol dependence, uncomplicated (principal); F14.20 Cocaine dependence, uncomplicated; F17.213 Nicotine dependence, cigarettes, with withdrawal; E87.6 Hypokalemia; L03.213 Periorbital cellulitis